=== PATIENT | male | born 1965 | race Caucasian/White ===

== ENCOUNTER 2016-07-29 09:46 | Inpatient (IN) | payer BC ==
[2016-07-22 15:43] VITALS: BMI 28.1
[~2016-07-29 09:46] MED LIST: CLINDAMYCIN 900 MG in DEXTROSE 5% IN WATER 50 ML IVPB ONE; DEXAMETHASONE SOD PHOSPHATE 10 MG/ML 1 ML VIAL IV ONE; HYDROmorphone 1 MG/ML 1 ML SYRINGE IVP PRN; LIDOCAINE 1% 20 ML VIAL (10MG/ML) FOR IV START INTRADERMA PRN; ONDANSETRON 4 MG/2 ML VIAL IVP ONE; SCOPOLAMINE 1.5MG/72HR PATCH TRANSDERM ONE
[2016-07-29] MEDS: LACTATED RINGERS 1,000 ML IV SCH (13:22)
[2016-07-29] MEDS ORDERED: LIDOCAINE 1% 20 ML VIAL (10MG/ML) FOR IV START INTRADERMA ONE (13:23)
[2016-07-29 13:25] LABS: Glucose,Whole Blood 140 mg/dL (75-99)
[2016-07-29] MEDS ORDERED: MIDAZOLAM 2 MG/2 ML VIAL IVP ONE (13:55)
[2016-07-29] MEDS ORDERED: SUCCINYLCHOLINE CHLORIDE 100 MG/5 ML SYR IV ONE (15:13)
[2016-07-29] MEDS ORDERED: MIDAZOLAM 2 MG/2 ML VIAL ONE (15:13)
[2016-07-29] MEDS ORDERED: LIDOCAINE 1% INJ 10MG/ML (20 ML MDV) ONE (15:13)
[2016-07-29] MEDS ORDERED: PROPOFOL 10 MG/ML 20 ML VIAL IV ONE (15:13)
[2016-07-29] MEDS ORDERED: ROCURONIUM BROMIDE 10 MG/ML 10 ML VIAL IV ONE (15:13)
[2016-07-29] MEDS ORDERED: NEOSTIGMINE 1 MG/ML 10 ML VIAL ONE (15:13)
[2016-07-29] MEDS ORDERED: GLYCOPYRROLATE 0.2 MG/ML 2 ML VIAL ONE (15:13)
[2016-07-29] MEDS ORDERED: fentaNYL (PF) 50 MCG/ML 2 ML AMP ONE (15:13)
[2016-07-29] MEDS ORDERED: SODIUM CHLORIDE 0.9% 100 ML with CLINDAMYCIN 900 MG IV ONE ×2 (15:15)
[2016-07-29] MEDS ORDERED: ceFAZolin 3,000 MG in SODIUM CHLORIDE 0.9% IRRIGATIO 3,000 ML IRRIGATION ONE (15:45)
--- NOTE | 2016-07-29 16:06 | P.OP ---
Date of Procedure: 07/29/16 Preoperative Diagnosis: Irritating hardware right hip Postoperative Diagnosis: Irritating hardware right hip Procedure(s) Performed: Removal of hardware right hip Anesthesia: spinal Surgeon: Elton Jean Stone Rigger #1: Jeanna Castellon Stone Rigger #2: Linnea Lazcano Estimated Blood Loss (ml): 50 Pathology: none sent Condition: stable Disposition: PACU Indications for Procedure: This is a 50-year-old gentleman who was admitted multiple hip surgeries on his right hip. He has a right total hip arthroplasty with a trochanteric claw and broken cables. He feels that the claw and the broken cable was given excessive pain on the lateral side of his hip, and wishes to have them removed. We discussed the surgical and nonsurgical treatment options at length. I also discussed the potential complications including, but not limited to infection, bleeding, nerve damage, and also the potential for his pain not being relieved. He is aware of this, and informed consent was obtained. Operative Findings: The operative findings are consistent with a retained trochanteric claw and a broken cable. Description of Procedure: Patient was seen and evaluated in the preoperative area, consent was reviewed, and the surgical site was marked with a skin marker. Patient was then brought to the operating room and given prophylactic antibiotics intravenously. A spinal anesthetic was administered by the anesthesia department. The patient was then placed on the operative table and placed in the lateral decubitus position with the bony prominences well-padded. The hip area was then prepped and draped in usual sterile fashion. A universal timeout was then performed, which confirmed the patient's name, surgical site, ALLERGIES, and procedure being performed. Next the incision site was located in the lateral aspect of the hip, centered at the tip of the greater trochanter.. The skin and subcutaneous tissues were sharply incised. Incision was carefully dissected down to the fascia. This fascia was then incised in line with the incision. Next, a Charnley retractor was then placed in the abductors were identified. The trochanteric claw was then readily identified. It was then removed after freeing it from the bone. It was found to grossly loose. The broken cable was then removed as well. There appeared to be no other evidence of retained hardware. The hip was then copiously irrigated with antibiotic solution with pulsatile lavage. The fascia was closed with #2 strata fix suture. The subcutaneous tissue was closed with 3-0 Vicryl. The subcuticular tissue was closed with 30 strata fix suture. The skin was then closed with Dermabond tape. The patient was then transferred to the recovery room in stable condition. The Asst. Jeanna Castellon was required due to the complexity of surgery, and the need for skilled surgical specialist for positioning, draping, exposure, retraction, and closure of the wound.and closure of the wound.
[2016-07-29] MEDS ORDERED: LACTATED RINGERS 1,000 ML IV ONE (16:10)
[2016-07-29] MEDS ORDERED: HYDROmorphone 1 MG/ML 1 ML SYRINGE IVP PRN ×3 (16:11)
[2016-07-29] MEDS ORDERED: SENNOSIDES-DOCUSATE SODIUM 1 EACH TAB PO PRN (16:11)
[2016-07-29] MEDS ORDERED: ONDANSETRON 4 MG/2 ML VIAL IVP PRN (16:11)
[2016-07-29] MEDS ORDERED: HYDROcodone/APAP 5-325MG 1 EACH TAB PO PRN ×2 (16:11)
[2016-07-29 16:33] VITALS: RESP 16
[2016-07-29 16:44] LABS: Glucose,Whole Blood 176 mg/dL (75-99)
--- NOTE | 2016-07-29 16:45 | XR ---
EXAMINATION TYPE: XR Hip Limited RT DATE OF EXAM: 07/29/2016 4:40 PM COMPARISON: NONE HISTORY: Postop right hip TECHNIQUE: Single AP right hip FINDINGS: Right hip prosthesis is present. Acetabular component is present. Cerclage wires are presen t. Acute fractures are not identified. IMPRESSION: 1. No acute fracture post right hip placement.
[2016-07-29] MEDS: SODIUM CHLORIDE 0.9% 1,000 ML IV SCH (17:47)
[2016-07-29] MEDS: INSULIN LISPRO (humaLOG) 300 UNIT/3 ML VIAL SQ SCH ×2 (17:47→22:28)
[2016-07-29 18:18] LABS: Basophils # (A) 0.1 k/uL (0-0.2); Basophils % (A) 1 %; CH 35.6; Eosinophils % (A) 0 %; HCT 55.6 % (39.0-53.0); HDW 2.32; HGB 18.8 gm/dL (13.0-17.5); Luc # (Auto) 0.06; Luc % (Auto) 1; Lymphocytes # (A) 0.6 k/uL (1.0-4.8); Lymphocytes % (A) 9 %; MCH 34.5 pg (25.0-35.0); MCHC 33.8 g/dL (31.0-37.0); MCV 102.2 fL (80.0-100.0); Macrocytosis Slight; Mean Platelet Volume 6.2; Monocytes # (A) 0.2 k/uL (0-1.0); Monocytes % (A) 3 %; Neutrophils # (A) 5.9 k/uL (1.3-7.7); Neutrophils % (A) 86 %; RBC 5.44 m/uL (4.30-5.90); WBC 6.9 k/uL (3.8-10.6)
[2016-07-29 21:40] LABS: Glucose,Whole Blood 243 mg/dL (75-99)
[2016-07-29] MEDS: metFORMIN 500 MG TAB PO SCH (22:28)
[2016-07-30] MEDS: CLINDAMYCIN 900 MG in DEXTROSE 5% IN WATER 50 ML IVPB SCH ×4 (00:23→08:00)
[2016-07-30] MEDS: SODIUM CHLORIDE 0.9% 1,000 ML IV SCH ×2 (00:25→09:47)
[2016-07-30] MEDS: LACTATED RINGERS 1,000 ML IV SCH (05:18)
[2016-07-30] MEDS ORDERED: PANTOPRAZOLE 40 MG TABLET PO SCH (07:30)
[2016-07-30 07:35] LABS: Glucose,Whole Blood 117 mg/dL (75-99)
[2016-07-30] MEDS: INSULIN LISPRO (humaLOG) 300 UNIT/3 ML VIAL SQ SCH (07:56)
[2016-07-30] MEDS: metFORMIN 500 MG TAB PO SCH (08:00)
[2016-07-30 08:06] VITALS: BP 135/78; PULSE 72; TEMP 97.9
[2016-07-30] MEDS ORDERED: MELOXICAM 7.5 MG TAB PO SCH (09:00)
[2016-07-30] MEDS ORDERED: LISINOPRIL 20 MG TAB PO SCH (09:00)
[2016-07-30] MEDS ORDERED: HYDROCHLOROTHIAZIDE 25 MG TAB PO SCH (09:00)
--- NOTE | 2016-07-30 09:58 | P.DS ---
Providers Date of admission: 07/29/16 12:24 Expected date of discharge: 07/30/16 Attending physician: Elton Jean Consults: 07/29/16 16:11 Consult Physician Stat Consulting Provider: Mark Mcnamara Consult Reason/Comments: medical management Do you want consulting provider notified?: Yes 07/29/16 17:53 Consult Physician Routine Consulting Provider: Terrance Healy Consult Reason/Comments: medical managment Do you want consulting provider notified?: Yes Primary care physician: Mark Mcnamara - Discharge Diagnosis(es) (1) Discomfort of right hip Current Visit: Yes Status: Acute Hospital Course: This is a 50-year-old gentleman who is last seen in our office with complaints of right hip pain. He's had multiple surgeries on the right hip with a trochanteric claw and broken cables. After discussion consideration the patient elected to proceed with removal of hardware. He was admitted to [facility] on 07/29/2016 and underwent the procedure. The procedure was performed without complications or sequelae. The patient is seen and evaluated at bedside with Dr. Elton Jean on postoperative day #1. He states that his pain is under fair control. He has no new complaints at this time. Dressing is clean dry and intact. Incision is fine with no erythema or active drainage. Thigh and calf is soft and nontender. He has sustained dorsiflexion plantar flexion. Sensation and circulatory status is intact. Patient is orthopedically stable for discharge to home today. Pertinent Studies: Laboratory Tests 07/29/16 17:46 WBC 6.9 RBC 5.44 Hgb 18.8 H Hct 55.6 H MCV 102.2 H Patient Condition at Discharge: Good Plan - Discharge Summary New Discharge Prescriptions: Aspirin 325 mg PO DAILY #14 tab Hydrocodone/Acetaminophen [[place] 5-325] 1 - 2 each PO Q6HR PRN #60 tab PRN Reason: Pain Sennosides-Docusate Sodium [Senokot-S] 2 tab PO DAILY #60 tablet Discharge Medication List Enalapril [Vasotec] 10 mg PO DAILY 07/22/16 [History] Hydrochlorothiazide [Hydrodiuril] 25 mg PO DAILY 07/22/16 [History] Meloxicam [Mobic] 15 mg PO DAILY 07/22/16 [History] [place]-3 Fatty Acids/Fish Oil [Fish Oil 1,000 mg Softgel] 2 cap PO BID 07/22/16 [ History] Omeprazole [PriLOSEC] 20 mg PO AC-BRKFST 07/22/16 [History] metFORMIN HCL 1,000 mg PO BID 07/22/16 [History] Acetaminophen Tab [Tylenol Tab] 650 mg PO Q4H PRN 07/23/16 [History] Multivitamin [Men's Multi-Vitamin] 1 tab PO DAILY 07/23/16 [History] Aspirin 325 mg PO DAILY #14 tab 07/30/16 [Rx] Hydrocodone/Acetaminophen [[place] 5-325] 1 - 2 each PO Q6HR PRN #60 tab 07/30/16 [Rx] Sennosides-Docusate Sodium [Senokot-S] 2 tab PO DAILY #60 tablet 07/30/16 [Rx] Follow up Appointment(s)/Referral(s): Elton Jean DO [Doctor of Osteopathic Medicine] - 2 Weeks Activity/Diet/Wound Care/Special Instructions: Weightbearing as tolerated Aspirin 325mg one po daily for 2 weeks Okay to shower after 2 days without drainage Leave skin gule intact Call OA [phone] with any questions or concerns Discharge Disposition: HOME SELF-CARE
[2016-07-30 11:57] LABS: Glucose,Whole Blood 120 mg/dL (75-99)
[2016-07-30] MEDS ORDERED: MULTIVITAMINS, THERA 1 EACH TAB PO SCH (12:00)
[2016-07-30] MEDS ORDERED: NON-FORMULARY DRUG (Omega-3 Fatty Acids/Fish Oil [Fish Oil 1,000 Mg Softgel] 2 CAP) PO SCH (21:44)
--- NOTE | 2016-07-31 08:57 | CONS ---
DATE OF CONSULTATION: 07/30/2016 REASON FOR CONSULTATION: Medical management requested by Dr. Jean. CONSULTATION: This is a 50-year-old patient I saw her yesterday afternoon on 07/30/2016. Patient's chronic stable medical conditions include diabetes, GERD, hyperlipidemia, osteoarthritis. Patient has a fredrick in the right hip, advised on the same and wire had broken off, has been irritating the same in the right hip. That wire was actually removed. Postprocedure, sitting up, no chest pain, no nausea or vomiting. Did tolerate his meal. REVIEW OF SYSTEMS: CONSTITUTIONAL: None. HEENT: None. RESPIRATORY: None. CARDIOVASCULAR: None. GASTROINTESTINAL: None. GENITOURINARY: None. MUSCULOSKELETAL: Pain in the joints. DERMATOLOGICAL: None. HEMATOLOGIC: None. LYMPHATICS: None. PSYCHIATRY: None. NEUROLOGICAL: None. PAST MEDICAL HISTORY: Diabetes mellitus type 2, GERD, hypertension, osteoarthritis. PAST SURGICAL HISTORY: Right hip surgery, revision right hip, left total hip, left ankle, left elbow surgery. SOCIAL HISTORY: Patient smokes 1/2 pack a week, done it for over 30 years. . Family history of colon cancer. Home medications include: 1. Metformin 1000 mg b.i.d. 2. Hydrochlorothiazide 25 mg a day. 3. Mobic. 4. Vasotec 10 mg p.o. daily. 5. Prilosec 20 mg a day. Allergies to AMPICILLIN. On examination, temperature 97.9, pulse 72, respiration 16, blood pressure 130/78, pulse ox 97% on room air. GENERAL APPEARANCE: Average build, sitting up in a chair, comfortable. EYES: Pupils equal. Conjunctivae normal. HEENT: Oral cavity normal. NECK: JVD not raised. Mass not palpable. Respiratory effort normal. LUNGS: Fair air entry. CARDIOVASCULAR: First and second sounds normal. No edema. ABDOMEN: Soft, nontender. Liver and spleen not palpable. LYMPHATIC: No lymph node palpable in neck or axillae. PSYCHIATRY: Mood and affect normal. Dressing over the right hip. INVESTIGATIONS: White count 6.9, hemoglobin 8.8. Accu-Cheks are noted. ASSESSMENT: 1. Surgery of the right hip, wire was removed that was bothering the patient. 2. Diabetes mellitus type 2, on oral hypoglycemic. 3. Gastroesophageal reflux disease. 4. Essential hypertension. PLAN: Home medications are resumed. Care was discussed with the patient. Patient should follow up with his family doctor upon discharge. Thank you, Dr. Jean.
== END 2016-07-30 12:27 | disposition home or self-care (01) | DRG 482 ==
LOC: 2ORMAIN 12:24 → 3SUR 16:09
PROVIDERS: ADMIT Orthopaedic Surgery; ATTEND Orthopaedic Surgery
PROC: 0SP904Z Removal of Internal Fixation Device from Right Hip Joint, Open Approach (ICD-10-PCS; principal; 2016-07-29 14:45)
DX: T84.84XA Pain due to internal orthopedic prosthetic devices, implants and grafts, initial encounter (principal); T84.114A Breakdown (mechanical) of internal fixation device of right femur, initial encounter; I10 Essential (primary) hypertension; E11.9 Type 2 diabetes mellitus without complications; Y79.2 Prosthetic and other implants, materials and accessory orthopedic devices associated with adverse incidents; E78.5 Hyperlipidemia, unspecified; F17.210 Nicotine dependence, cigarettes, uncomplicated; K21.9 Gastro-esophageal reflux disease without esophagitis; M19.90 Unspecified osteoarthritis, unspecified site; Z79.84 Long term (current) use of oral hypoglycemic drugs; Z79.899 Other long term (current) drug therapy; Z80.0 Family history of malignant neoplasm of digestive organs; Z88.0 Allergy status to penicillin
CPT/HCPCS: 73501; 85025

== ENCOUNTER → 2016-09-20 | Outpatient (CLI) | payer BC ==
[2016-09-20 12:27] LABS: CH 36.6; CHCM 35.7; HCT 57.5 % (39.0-53.0); HGB 19.3 gm/dL (13.0-17.5); MCH 34.5 pg (25.0-35.0); MCHC 33.5 g/dL (31.0-37.0); MCV 102.9 fL (80.0-100.0); Macrocytosis Slight; Mean Platelet Volume 6.2; RBC 5.58 m/uL (4.30-5.90); RDW 13.4 % (11.5-15.5); WBC 6.4 k/uL (3.8-10.6)
[2016-09-20 12:37] LABS: INR 1.1 (<1.1); Partial Thromboplastin Time 23.7 sec (22.0-30.0); Prothrombin Time 11.3 sec (9.0-12.0)
[2016-09-20 12:38] LABS: ALT 59 U/L (21-72); AST 33 U/L (17-59); Alkaline Phosphatase 80 U/L (38-126); Anion Gap 10 mmol/L; Blood Urea Nitrogen 7 mg/dL (9-20); Calcium 9.3 mg/dL (8.4-10.2); Carbon Dioxide 24 mmol/L (22-30); Chloride 95 mmol/L (98-107); Glucose 112 mg/dL (74-99); Non-African American GFR(MDRD) >60 (>60 ml/min/1.73 sqM); Potassium 4.3 mmol/L (3.5-5.1); Sodium 129 mmol/L (137-145); Total Bilirubin 0.7 mg/dL (0.2-1.3); Total Protein 7.2 g/dL (6.3-8.2)
[2016-09-20 12:40] LABS: Appearance,Urine Clear (Clear); Bilirubin,Urine Negative (Negative); Glucose,Urine (UA) Negative (Negative); Ketones,Urine Trace (Negative); Leukocyte Esterase,Urine Negative (Negative); Mucus,Urine Rare /hpf; Nitrite,Urine Negative (Negative); PH, Urine 6.5 (5.0-8.0); Particle Count 370; Protein,Urine Negative (Negative); RBC,Urine 1 /hpf (0-5); Specific Gravity,Urine 1.007 (1.001-1.035); UA Billing (MACRO vs. MICRO) MICRO; Urobilinogen,Urine <2.0 mg/dL (<2.0); WBC,Urine <1 /hpf (0-5)
== END ==
LOC: LABPAT 11:33
PROVIDERS: ATTEND Orthopaedic Surgery Hand Surgery
DX: Z01.810 Encounter for preprocedural cardiovascular examination (principal); Z01.812 Encounter for preprocedural laboratory examination; Z51.81 Encounter for therapeutic drug level monitoring; Z79.01 Long term (current) use of anticoagulants
CPT/HCPCS: 36415; 80053; 81001; 85027; 85610; 85730; 87070

== ENCOUNTER → 2016-09-23 | Outpatient (CLI) | payer BC | END | disposition home or self-care (01) | LOC: LABPAT 14:23 | PROVIDERS: ATTEND Orthopaedic Surgery | DX: Z01.812 Encounter for preprocedural laboratory examination (principal) | CPT/HCPCS: 85652; 86140 ==

== ENCOUNTER 2016-09-24 07:00 | Inpatient (IN) | payer BC ==
[~2016-09-24 07:00] MED LIST changes: +ACETAMINOPHEN TAB 500 MG TAB PO ONE; -CLINDAMYCIN 900 MG in DEXTROSE 5% IN WATER 50 ML IVPB ONE; +FAMOTIDINE 20 MG/2 ML VIAL IV PRN; -HYDROmorphone 1 MG/ML 1 ML SYRINGE IVP PRN; +MIDAZOLAM 2 MG/2 ML VIAL IV PRN; -ONDANSETRON 4 MG/2 ML VIAL IVP ONE; +ROPIVACAINE 246.25 MG, EPINEPHrine 0.5 MG, KETOROLAC 30 MG, cloNIDine HCL/PF 80 MCG, WA... MISCELLANE ONE; +TRANEXAMIC ACID 1,000 MG in SODIUM CHLORIDE 0.9% 100 ML IVPB ONE; +ceFAZolin 2 GM in SODIUM CHLORIDE 0.9% 100 ML IVPB ONE
[2016-09-24] MEDS: LACTATED RINGERS 1,000 ML IV SCH ×2 (10:43→23:26)
[2016-09-24] MEDS ORDERED: LIDOCAINE 1% 20 ML VIAL (10MG/ML) FOR IV START INTRADERMA ONE (10:44)
[2016-09-24] MEDS: MELOXICAM 7.5 MG TAB PO ONE ×2 (10:47→17:04)
[2016-09-24] MEDS ORDERED: ONDANSETRON 4 MG/2 ML VIAL IVP ONE (10:55)
[2016-09-24 10:57] LABS: Glucose,Whole Blood 145 mg/dL (75-99)
[2016-09-24] MEDS ORDERED: ePHEDrine 50 MG/ML 1 ML AMP ONE (12:48)
[2016-09-24] MEDS ORDERED: TRANEXAMIC ACID 1,000 MG/10 ML VIAL ONE (12:48)
[2016-09-24] MEDS ORDERED: PHENYLEPHRINE-0.9% NACL SYG 1 MG/10 ML SYRINGE ONE (12:48)
[2016-09-24] MEDS ORDERED: HEPARIN SODIUM,PORCINE 10,000 UNIT/ML 1 ML VIAL ONE (12:48)
[2016-09-24] MEDS ORDERED: SODIUM CHLORIDE 0.9% 100 ML BAG ONE (12:48)
[2016-09-24] MEDS ORDERED: SODIUM CHLORIDE 0.9% IRRIG 1,000 ML BTL IRRIGATION ONE (12:48)
[2016-09-24] MEDS ORDERED: PROPOFOL 10 MG/ML 20 ML VIAL IV ONE (12:48)
[2016-09-24] MEDS ORDERED: MIDAZOLAM 2 MG/2 ML VIAL ONE (12:48)
[2016-09-24] MEDS ORDERED: fentaNYL (PF) 50 MCG/ML 50 ML VIAL ONE (12:48)
[2016-09-24] MEDS ORDERED: MIDAZOLAM 2 MG/2 ML VIAL IVP ONE (12:49)
[2016-09-24] MEDS ORDERED: LACTATED RINGERS 1,000 ML IV ONE ×2 (13:34→15:01)
[2016-09-24] MEDS ORDERED: ceFAZolin 3,000 MG in SODIUM CHLORIDE 0.9% IRRIGATIO 3,000 ML IRRIGATION ONE (13:36)
--- NOTE | 2016-09-24 15:23 | P.OP ---
Date of Procedure: 09/24/16 Preoperative Diagnosis: Loose acetabular component right total hip arthroplasty Postoperative Diagnosis: Loose acetabular component right total hip arthroplasty Procedure(s) Performed: Revision right total hip arthroplasty Implants: [employer] R3 multi hole hemispherical shell, 60 mm [employer] R3 XLPE 20 acetabular liner, 36 mm x 60 mm [employer] 6.5 mm cancellus screws 5 Oliverio L fit anatomic C taper femoral head, 36 mm by +10 Components were press-fit The articulation is metal on polyethylene. Anesthesia: spinal Surgeon: Elton Jean [employer] Farm Manager #1: Linnea Lazcano Estimated Blood Loss (ml): 2,800 (1506 mL returned with Cell Saver) Pathology: other (Cultures 2, frozen section of synovial tissue from right hip) Condition: stable Disposition: PACU Indications for Procedure: This is a 50-year-old gentleman that has had multiple prior right hip surgeries. He began having more pain recently, and an x-ray demonstrated a loose acetabular component was right total hip. After discussing the surgical and nonsurgical treatment options with him at length, he wishes to proceed with a revision right total hip arthroplasty. He is aware of the potential complications including, but not limited to, infection, bleeding, nerve injury, dislocation, leg length discrepancy, and the need for further surgery. He is aware of all these and informed consent was obtained. Operative Findings: The operative findings are consistent with a loose acetabular component of the right total hip arthroplasty. The femoral component was well fixed. There was no evidence of an active infection. Description of Procedure: Patient was seen and evaluated in the preoperative area, consent was reviewed, and the surgical site was marked with a skin marker. Patient was then brought to the operating room and given prophylactic antibiotics intravenously. 1 g of Tranexamic acid was also given. A spinal anesthetic was administered by the anesthesia department. The patient was then placed on the operative table and placed in the lateral decubitus position with the bony prominences well-padded. The hip area was then prepped and draped in usual sterile fashion. A universal timeout was then performed, which confirmed the patient's name, surgical site, ALLERGIES, and procedure being performed. Next the incision site was located in the lateral aspect of the hip, centered at the tip of the greater trochanter. His prior incision was utilized. The skin and subcutaneous tissues were sharply incised, with the prior incision being removed.. Incision was carefully dissected down to the fascia. This fascia was then incised in line with the incision. Next, a Charnley retractor was then placed in the abductors were identified. The anterior one third of the abductors was released off the trochanter and one large sleeve. The anterior hip capsule was then exposed. The capsule was then opened. The proximal femur was then visualized. The hip was then gently dislocated. The femoral head was removed from the prosthesis. The femoral component was inspected and found to be well fixed.. Attention was then turned to the acetabulum. The acetabulum was exposed and any remaining labrum was excised. The prior acetabular component was easily removed. The prior screws and K wires removed as well. Sequential reaming of the acetabulum was performed to a bed of bleeding cancellus bone. When the appropriate size was reached, a trial was then placed. The trial was then removed. 30 mL of crushed cancellus bone was then placed in the acetabulum and reverse reamed. Then the final implant was impacted at 20 of anteversion and 40 of abduction, and fully seated in the acetabulum. 5 screws were then placed in the acetabulum. Next, the liner was then impacted, with a 20 elevated liner located in the anterior superior quadrant. Component locking was confirmed. A trial was then placed with appropriate head and neck, and the hip was gently reduced. The leg lengths were checked and found to be equal. Hip was then taken through full range of motion, was stable throughout. Next, the hip was gently dislocated, and the trials were removed. Final implants were then impacted and the hip was again reduced. The leg lengths were again examined and found to be equal. The hip was also taken through range of motion, and found to be stable. The hip was then copiously irrigated with antibiotic solution with pulsatile lavage. The hip was then irrigated with Irrisept solution. The soft tissues were then injected with ropivacaine solution. A second dose of 1 g of Tranexamic acid was given. The abductors were then repaired with #5 Ethibond suture with drill holes to the bone. The fascia was closed with #2 strata fix suture. The subcutaneous tissue was closed with 3-0 Vicryl. The subcuticular tissue was closed with 30 strata fix suture. The skin was then closed with Dermabond tape. The patient was then transferred to the recovery room in stable condition. The pediatric physical therapy assistant PAVEL Johnson was required due to the complexity of surgery, and the need for skilled rn medical surgical for positioning, draping, exposure, retraction, and closure of the wound.and closure of the wound.
[2016-09-24] MEDS ORDERED: HYDROmorphone 1 MG/ML 1 ML SYRINGE IVP PRN (15:39)
[2016-09-24] MEDS ORDERED: NALOXONE 0.4 MG/ML 1 ML VIAL IV PRN (15:39)
[2016-09-24] MEDS ORDERED: MAGNESIUM HYDROXIDE 2,400 MG/10 ML CUP PO PRN (15:39)
[2016-09-24] MEDS ORDERED: DIAZEPAM 5 MG TAB PO PRN ×2 (15:39)
[2016-09-24] MEDS ORDERED: Acetaminophen-Codeine 300-30mg TAB PO PRN (15:39)
--- NOTE | 2016-09-24 15:56 | XR ---
EXAMINATION TYPE: XR Hip Limited RT DATE OF EXAM: 09/24/2016 COMPARISON: 07/29/2016 HISTORY: Postop TECHNIQUE: Single AP view pelvis is obtained. FINDINGS: There is a right hip prosthesis. Cerclage wires are present. Radiopaque foreign bodies are at the level of the proximal diaphysis. Acetabular component is present. IMPRESSION: 1. No acute osseous abnormality.
[2016-09-24 16:27] LABS: Glucose,Whole Blood 184 mg/dL (75-99)
[2016-09-24] MEDS: HYDROmorphone 1 MG/ML 1 ML SYRINGE IVP PRN ×3 (16:32→20:58)
[2016-09-24 16:49] LABS: Basophils % (A) 0 %; CH 36.2; CHCM 34.1; Eosinophils % (A) 0 %; HCT 54.3 % (39.0-53.0); HDW 2.31; HGB 17.8 gm/dL (13.0-17.5); Luc % (Auto) 1; Lymphocytes # (A) 0.7 k/uL (1.0-4.8); Lymphocytes % (A) 6 %; MCHC 32.8 g/dL (31.0-37.0); MCV 106.6 fL (80.0-100.0); Macrocytosis Moderate; Mean Platelet Volume 6.4; Monocytes # (A) 0.5 k/uL (0-1.0); Monocytes % (A) 5 %; Neutrophils # (A) 9.8 k/uL (1.3-7.7); Neutrophils % (A) 88 %; RBC 5.09 m/uL (4.30-5.90); RDW 13.5 % (11.5-15.5); WBC 11.1 k/uL (3.8-10.6); WBC (Perox) 10.65
[2016-09-24] MEDS: SODIUM CHLORIDE 0.9% 1,000 ML IV SCH (17:29)
[2016-09-24] MEDS: ceFAZolin 2 GM in SODIUM CHLORIDE 0.9% 100 ML IVPB SCH ×2 (17:31→23:23)
[2016-09-24] MEDS: INSULIN LISPRO (humaLOG) 300 UNIT/3 ML VIAL SQ SCH ×2 (17:55→21:14)
[2016-09-24] MEDS: NICOTINE 7MG/24HR PATCH TRANSDERM SCH (19:52)
[2016-09-24] MEDS: metFORMIN 500 MG TAB PO SCH (19:53)
[2016-09-24] MEDS: LORATADINE 10 MG TAB PO SCH (19:53)
[2016-09-24] MEDS: ASPIRIN 325 MG TAB PO SCH (19:53)
[2016-09-24] MEDS: SENNOSIDES-DOCUSATE SODIUM 1 EACH TAB PO SCH (19:54)
[2016-09-24 21:15] LABS: Glucose,Whole Blood 170 mg/dL (75-99)
--- NOTE | 2016-09-24 23:01 | CONS ---
DATE OF CONSULTATION: 09/24/2016. REASON FOR CONSULTATION: Medical management requested by Dr. Jean. CONSULTATION: This is a pleasant 50 -year-old patient who had a loose acetabulum and underwent right revision total hip arthroplasty of the right hip. Postprocedure pain is controlled. No nausea or vomiting. Actually was eating his dinner. No chest pain. The patient's chronic stable medical conditions include diabetes, GERD, hypertension, has rheumatoid arthritis of the joints. REVIEW OF SYSTEMS: CONSTITUTIONAL: None. HEENT: None. RESPIRATORY: None. CARDIOVASCULAR: None. GASTROINTESTINAL: Heartburn. GENITOURINARY: None. MUSCULOSKELETAL: As above. Dermatological: None. HEMATOLOGICAL: None. LYMPHATICS: None. PSYCHIATRY: None. NEUROLOGICAL: None. Past medical history of diabetes, GERD, hypertension, osteoarthritis. PAST SURGICAL HISTORY: Right total hip surgery, right revision right hip, left total hip, left ankle and left elbow. SOCIAL HISTORY: Patient is a smoker, variable amount for the last 28 years. Drinks alcohol socially, . Works at [employer]. Family history of colon cancer. HOME MEDICATIONS: 1. Metformin 1000 mg b.i.d. 2. Hydrochlorothiazide 25 mg p.o. daily. 3. Flonase one spray nasal. 4. ( ) 10 mg p.o. q.h.s. 5. Ibuprofen 400 mg q.6 p.r.n. 6. Vasotec 10 mg p.o. daily. 7. Prilosec 20 mg at breakfast. 8. Fish oil two capsules p.o. b.i.d. 9. Men's multivitamin 1 tablet p.o. daily. 10. Mobic 50 mg p.o. daily. ALLERGIES TO AMPICILLIN. On examination, afebrile, pulse 78, respirations 16, blood pressure 130/79, pulse ox 97% on 3 L. GENERAL APPEARANCE: Average build. Sitting up, comfortable. EYES: Pupils equal. Conjunctivae normal. HEENT: Oral cavity normal. NECK: JVD is not raised. Mass not palpable. RESPIRATORY: Effort normal. LUNGS: Slightly decreased breath sounds. CARDIOVASCULAR: First and second sounds normal. No edema. ABDOMEN: Soft palpable. LYMPHATIC: No lymph nodes palpable in neck or axillae. PSYCHIATRY: Alert and oriented x3. Mood and affect is normal. NEUROLOGICAL: Pupils equal. Cranial nerves grossly intact. Power is grossly intact. INVESTIGATIONS: White count 11.1, hemoglobin 17.8. ASSESSMENT: 1. Revision right total hip arthroplasty. 2. Type 2 diabetes mellitus, on oral hypoglycemics. 3. Gastroesophageal reflux disease. 4. Essential hypertension. 5. Primary osteoarthritis in multiple joints. 6. Chronic nicotine dependence. Patient is a smoker. PLAN: Home medications will be resumed. DVT prophylaxis per Dr. Jean. Patient will be given a nicotine patch. Questions were answered. Thank you Dr. Jean.
[2016-09-25] MEDS: Acetaminophen-Codeine 300-30mg TAB PO PRN ×4 (00:35→17:20)
[2016-09-25] MEDS: hydrOXYzine PAMOATE 25 MG CAP PO PRN ×2 (00:35→07:06)
[2016-09-25] MEDS: HYDROmorphone 1 MG/ML 1 ML SYRINGE IVP PRN ×4 (02:09→19:51)
[2016-09-25] MEDS: SODIUM CHLORIDE 0.9% 1,000 ML IV SCH ×2 (05:56→23:30)
[2016-09-25 07:33] LABS: Glucose,Whole Blood 126 mg/dL (75-99)
[2016-09-25] MEDS: INSULIN LISPRO (humaLOG) 300 UNIT/3 ML VIAL SQ SCH ×4 (07:50→20:28)
[2016-09-25] MEDS: PANTOPRAZOLE 40 MG TABLET PO SCH (07:50)
[2016-09-25] MEDS: metFORMIN 500 MG TAB PO SCH ×2 (07:50→17:58)
[2016-09-25 07:51] LABS: Basophils % (A) 0 %; CH 36.2; CHCM 35.3; Eosinophils # (A) 0.1 k/uL (0-0.7); Eosinophils % (A) 1 %; HCT 40.5 % (39.0-53.0); HDW 2.42; Luc # (Auto) 0.16; Luc % (Auto) 2; Lymphocytes # (A) 2.1 k/uL (1.0-4.8); Lymphocytes % (A) 25 %; MCH 35.9 pg (25.0-35.0); MCHC 34.8 g/dL (31.0-37.0); MCV 103.1 fL (80.0-100.0); Macrocytosis Slight; Mean Platelet Volume 7.1; Monocytes # (A) 0.5 k/uL (0-1.0); Monocytes % (A) 6 %; Neutrophils # (A) 5.5 k/uL (1.3-7.7); Neutrophils % (A) 66 %; RBC 3.93 m/uL (4.30-5.90); WBC 8.4 k/uL (3.8-10.6); WBC (Perox) 8.69
[2016-09-25] MEDS: ASPIRIN 325 MG TAB PO SCH ×2 (07:51→20:28)
[2016-09-25] MEDS: FLUTICASONE 50MCG/SPRAY NASAL 16GM NASAL SCH (07:51)
[2016-09-25] MEDS: MELOXICAM 7.5 MG TAB PO SCH (07:52)
[2016-09-25] MEDS: LISINOPRIL 20 MG TAB PO SCH (07:52)
[2016-09-25 07:53] LABS: HGB 14.1 gm/dL (13.0-17.5)
[2016-09-25] MEDS: NICOTINE 7MG/24HR PATCH TRANSDERM SCH (07:53)
[2016-09-25] MEDS: ceFAZolin 2 GM in SODIUM CHLORIDE 0.9% 100 ML IVPB SCH ×3 (07:57→23:30)
[2016-09-25 08:12] LABS: Hemoglobin A1C 5.5 % (4.2-6.1)
[2016-09-25 11:38] LABS: Glucose,Whole Blood 126 mg/dL (75-99)
--- NOTE | 2016-09-25 13:34 | P.PN ---
Subjective Principal diagnosis: Status post revision right total hip arthroplasty This is a well-appearing 50 year old male who is status post revision right total hip arthroplasty. This is post operative day #1. Patient was seen and evaluated at bedside with Dr. Elton Jean. Patient states his pain is under control. Patient has no new complaints today. Objective - Vital Signs Vital signs: Vital Signs Temp 97.9 F 09/25/16 02:33 Pulse 86 09/25/16 02:33 Resp 16 09/25/16 08:00 BP 108/74 09/25/16 02:33 Pulse Ox 96 09/25/16 07:37 Intake & Output 09/24/16 09/25/16 09/25/16 18:59 06:59 18:59 Intake Total 5880 455 360 Output Total 2875 350 600 Balance 3005 105 -240 Intake: IV 5400 455 Sodium Chloride 0.9% 1, 455 000 ml @ 65 mls/hr IV . [id number] REX Rx#:[id number] Oral 480 360 Output: Urine 75 350 600 Uretheral (Ha) 350 600 Estimated Blood Loss 2800 Other: Voiding Method Indwelling Catheter Indwelling Catheter - Exam Patient is in no acute distress and is alert and oriented x3. Vital signs are stable. Patient's incision is clean and intact. There is some sanguineous drainage noted on the dressing.. Calf is soft and nontender. Patient has full foot and ankle motion. Neurovascular status is intact. - Labs CBC & Chem 7: 09/25/16 06:39 Labs: Abnormal Lab Results - Last 24 Hours (Table) 09/24/16 09/24/16 09/24/16 Range/Units 16:21 16:23 21:12 WBC 11.1 H (3.8-10.6) k/uL RBC (4.30-5.90) m/uL Hgb 17.8 H (13.0-17.5) gm/dL Hct 54.3 H (39.0-53.0) % MCV 106.6 H (80.0-100.0) fL MCH (25.0-35.0) pg Plt Count (150-450) k/uL Neutrophils # 9.8 H (1.3-7.7) k/uL Lymphocytes # 0.7 L (1.0-4.8) k/uL POC Glucose (mg/dL) 184 H 170 H (75-99) mg/dL 09/25/16 09/25/16 09/25/16 Range/Units 06:39 07:30 11:23 WBC (3.8-10.6) k/uL RBC 3.93 L (4.30-5.90) m/uL Hgb (13.0-17.5) gm/dL Hct (39.0-53.0) % MCV 103.1 H (80.0-100.0) fL MCH 35.9 H (25.0-35.0) pg Plt Count 141 L (150-450) k/uL Neutrophils # (1.3-7.7) k/uL Lymphocytes # (1.0-4.8) k/uL POC Glucose (mg/dL) 126 H 126 H (75-99) mg/dL Microbiology - Last 24 Hours (Table) 09/24/16 13:33 Gram Stain - Preliminary Hip - Right Wound Culture - Preliminary 09/24/16 13:33 Gram Stain - Preliminary Hip - Right Wound Culture - Preliminary 09/24/16 13:33 Anaerobic Culture - Preliminary Hip - Right 09/24/16 13:33 Anaerobic Culture - Preliminary Hip - Right Assessment and Plan (1) History of total right hip arthroplasty Status: Acute (2) Discomfort of right hip Status: Acute Plan: Continue routine postoperative care. Continue daily dressing changes. Continue hip precautions and abductor pillow. Weightbearing as tolerated. Continue anticoagulation with aspirin. Likely discharge to rehab in one or two days.
[2016-09-25 16:38] LABS: Glucose,Whole Blood 143 mg/dL (75-99)
--- NOTE | 2016-09-25 19:38 | PN ---
DATE OF SERVICE: 09/25/2016 PRESENTING COMPLAINT: Right hip surgery. INTERVAL HISTORY: Patient is status post right hip surgery, doing well. No chest pain, short of breath, Tolerating his diet. Did work with some physical therapy, comfortable. Review of systems done for constitutional, cardiovascular, GI, pulmonary findings as above. Current medications are reviewed. On examination, temperature 97.9, pulse 86, respiration 16, blood pressure 108/74, pulse ox 97% on room air. GENERAL APPEARANCE: Sitting up, comfortable. EYES: Pupils equal. Conjunctivae normal. NECK: JVD not raised. Mass not palpable. RESPIRATORY: Effort normal. Lungs are clear. Slight decreased breath sounds. CARDIOVASCULAR: First and second sounds normal. No edema. ABDOMEN: Soft, nontender. Liver and spleen not palpable. LYMPHATIC: No lymph nodes palpable in neck or axillae. PSYCHIATRY: Alert and oriented x3. Mood and affect normal. INVESTIGATIONS: White count 8.4, hemoglobin 14.1. Accu-Cheks are noted. ASSESSMENT: 1. Revision right total hip arthroplasty. 2. Diabetes mellitus, type II, on oral hypoglycemic. 3. Gastroesophageal reflux disease. 4. Essential hypertension. 5. Primary osteoarthritis in multiple joints. 6. Chronic nicotine dependence. Patient is a smoker. PLAN: Continue current medication and treatment plan. Care was discussed with the patient. Thank you Dr. Jean.
[2016-09-25 20:11] LABS: Glucose,Whole Blood 183 mg/dL (75-99)
[2016-09-25] MEDS: SENNOSIDES-DOCUSATE SODIUM 1 EACH TAB PO SCH (20:29)
[2016-09-25] MEDS: MELATONIN 5 MG TABLET PO SCH (20:29)
[2016-09-25] MEDS: LORATADINE 10 MG TAB PO SCH (20:29)
[2016-09-26] MEDS: HYDROmorphone 1 MG/ML 1 ML SYRINGE IVP PRN ×2 (01:33→05:47)
[2016-09-26] MEDS: Acetaminophen-Codeine 300-30mg TAB PO PRN ×5 (03:39→20:01)
[2016-09-26] MEDS: LACTATED RINGERS 1,000 ML IV SCH (05:59)
[2016-09-26 07:06] LABS: Glucose,Whole Blood 126 mg/dL (75-99)
[2016-09-26] MEDS: INSULIN LISPRO (humaLOG) 300 UNIT/3 ML VIAL SQ SCH ×4 (07:13→20:56)
[2016-09-26] MEDS: NICOTINE 7MG/24HR PATCH TRANSDERM SCH (07:45)
[2016-09-26] MEDS: metFORMIN 500 MG TAB PO SCH ×2 (07:50→17:32)
[2016-09-26] MEDS: PANTOPRAZOLE 40 MG TABLET PO SCH (07:50)
[2016-09-26] MEDS: FLUTICASONE 50MCG/SPRAY NASAL 16GM NASAL SCH (07:51)
[2016-09-26] MEDS: LISINOPRIL 20 MG TAB PO SCH (07:51)
[2016-09-26] MEDS: ASPIRIN 325 MG TAB PO SCH ×2 (07:51→20:56)
[2016-09-26] MEDS: MELOXICAM 7.5 MG TAB PO SCH (07:52)
[2016-09-26] MEDS: SODIUM CHLORIDE 0.9% 1,000 ML IV SCH (07:58)
[2016-09-26] MEDS: ceFAZolin 2 GM in SODIUM CHLORIDE 0.9% 100 ML IVPB SCH (07:59)
--- NOTE | 2016-09-26 09:10 | P.PN ---
Subjective Principal diagnosis: Status post revision right total hip arthroplasty This is a well-appearing 50 year old male who is status post revision right total hip arthroplasty. This is post operative day #2. Patient states his pain is under control. Patient states he's been up and walking with physical therapy. Patient has no new complaints today. Objective - Vital Signs Vital signs: Vital Signs Temp 98.8 F 09/26/16 07:00 Pulse 78 09/26/16 07:00 Resp 17 09/26/16 07:00 BP 121/72 09/26/16 07:00 Pulse Ox 99 09/26/16 07:00 Intake & Output 09/25/16 09/26/16 09/26/16 18:59 06:59 18:59 Intake Total 840 530 Output Total 675 1100 Balance 165 -1100 530 Intake: Oral 840 530 Output: Urine 675 1100 Uretheral (Ha) 600 Other: Voiding Method Indwelling Catheter # Voids 1 1 - Exam Patient is in no acute distress and is alert and oriented x3. Vital signs are stable. Patient's incision is clean and intact. There is some mild drainage from the incision. Calf is soft and nontender. Patient has full foot and ankle motion. Neurovascular status is intact. - Labs CBC & Chem 7: 09/25/16 06:39 Labs: Abnormal Lab Results - Last 24 Hours (Table) 09/25/16 09/25/16 09/25/16 Range/Units 11:23 16:35 20:08 POC Glucose (mg/dL) 126 H 143 H 183 H (75-99) mg/dL 09/26/16 Range/Units 07:03 POC Glucose (mg/dL) 126 H (75-99) mg/dL Microbiology - Last 24 Hours (Table) 09/24/16 13:33 Gram Stain - Preliminary Hip - Right Wound Culture - Preliminary 09/24/16 13:33 Gram Stain - Preliminary Hip - Right Wound Culture - Preliminary Assessment and Plan (1) History of total right hip arthroplasty Status: Acute (2) Discomfort of right hip Status: Acute Plan: Continue routine postoperative care. Continue daily dressing changes. Continue hip precautions and abductor pillow. Weightbearing as tolerated. Continue anticoagulation with aspirin. Likely discharge to rehab tomorrow.
--- NOTE | 2016-09-26 09:35 | P.DS ---
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 The patient presents for evaluation. After discussion and consideration patient elects to proceed with revision total hip arthroplasty. The patient is seen preoperatively by Dr. Jean and cleared for surgery. Patient is admitted to [facility] on 09/24/2016 for revision total hip arthroplasty. The procedures performed without complication or sequelae. The patient is doing well postoperatively. Labs and vital signs are stable on day of discharge. On day of discharge patient's hip incision is healing well. There is minimal erythema. There is mild drainage noted at this time. There is minimal soft tissue swelling to the hip and thigh. Patient has full foot and ankle motion without difficulty or pain. Neurovascular status to the right lower extremity is intact. Patient is discharged to rehab in good condition.Please see med rec for accurate list of home medications. Plan - Discharge Summary New Discharge Prescriptions: New Acetaminophen-Codeine 300-30mg [Tylenol #3] 1 - 2 tab PO Q4-6H PRN #90 tablet PRN Reason: Pain Aspirin 325 mg PO BID #60 tab Sennosides-Docusate Sodium [Senokot-S] 1 tab PO BID #60 tablet No Action Omeprazole [PriLOSEC] 20 mg PO AC-BRKFST Enalapril [Vasotec] 10 mg PO QAM Meloxicam [Mobic] 15 mg PO QAM metFORMIN HCL 1,000 mg PO BID Hydrochlorothiazide [Hydrodiuril] 25 mg PO QAM [place]-3 Fatty Acids/Fish Oil [Fish Oil 1,000 mg Softgel] 2 cap PO BID Acetaminophen Tab [Tylenol Tab] 650 mg PO Q4H PRN PRN Reason: Pain Multivitamin [Men's Multi-Vitamin] 1 tab PO DAILY Loratadine [Alavert] 10 mg PO HS Ibuprofen 400 mg PO Q6H PRN PRN Reason: Pain Fluticasone Nasal [place] [Flonase Nasal [place]] 1 spray NASAL DAILY Discharge Medication List Enalapril [Vasotec] 10 mg PO QAM 07/22/16 [History] Hydrochlorothiazide [Hydrodiuril] 25 mg PO QAM 07/22/16 [History] Meloxicam [Mobic] 15 mg PO QAM 07/22/16 [History] [place]-3 Fatty Acids/Fish Oil [Fish Oil 1,000 mg Softgel] 2 cap PO BID 07/22/16 [ History] Omeprazole [PriLOSEC] 20 mg PO AC-BRKFST 07/22/16 [History] metFORMIN HCL 1,000 mg PO BID 07/22/16 [History] Acetaminophen Tab [Tylenol Tab] 650 mg PO Q4H PRN 07/23/16 [History] Multivitamin [Men's Multi-Vitamin] 1 tab PO DAILY 07/23/16 [History] Fluticasone Nasal [place] [Flonase Nasal [place]] 1 spray NASAL DAILY 09/20/16 [ History] Ibuprofen 400 mg PO Q6H PRN 09/20/16 [History] Loratadine [Alavert] 10 mg PO HS 09/20/16 [History] Acetaminophen-Codeine 300-30mg [Tylenol #3] 1 - 2 tab PO Q4-6H PRN #90 tablet [Rx] Aspirin 325 mg PO BID #60 tab 09/26/16 [Rx] Sennosides-Docusate Sodium [Senokot-S] 1 tab PO BID #60 tablet 09/26/16 [Rx] Follow up Appointment(s)/Referral(s): Elton Jean DO [Doctor of Osteopathic Medicine] - 2 Weeks Patient Instructions/Handouts: Precautions after Total Joint Replacement Surgery (DC), Total Hip Replacement (DC), Hip Abduction Pillow (DC) Activity/Diet/Wound Care/Special Instructions: Kelsie Oconnell for rehab in [place] Weightbearing as tolerated with walker May shower after 2 days if no drainage from the incision Continue use of abductor pillow Follow-up with [facility] in 2 weeks with any questions or concerns Discharge Disposition: TRANSFER TO SNF/ECF
[2016-09-26 11:24] LABS: Glucose,Whole Blood 115 mg/dL (75-99)
[2016-09-26 17:14] LABS: Glucose,Whole Blood 107 mg/dL (75-99)
[2016-09-26 20:06] LABS: Glucose,Whole Blood 152 mg/dL (75-99)
[2016-09-26] MEDS: LORATADINE 10 MG TAB PO SCH (20:56)
[2016-09-26] MEDS: MELATONIN 5 MG TABLET PO SCH (20:56)
[2016-09-26] MEDS: SENNOSIDES-DOCUSATE SODIUM 1 EACH TAB PO SCH (20:56)
--- NOTE | 2016-09-26 23:51 | PN ---
DATE OF SERVICE: 09/26/2016 PRESENTING COMPLAINT: Right hip surgery. INTERVAL HISTORY: This patient was seen by me earlier today, status post right hip surgery. Doing much better. Tolerating a diet. Working with Physical Therapy. Pain is controlled. No nausea or vomiting. Review of systems done for constitutional, cardiovascular, GI, pulmonary; relevant findings are above. Current medications are reviewed. On examination, temperature 98.8, pulse 78, respiration 17, blood pressure 129/72, pulse ox 99% on room air. GENERAL APPEARANCE: Sitting on bed. Comfortable. EYES: Pupils equal. Conjunctivae normal. NECK: JVD not raised. RESPIRATORY: Effort normal. LUNGS: Slightly decreased breath sounds. CARDIOVASCULAR: First and second sounds normal. No edema. ABDOMEN: Soft, non-tender. Liver and spleen not palpable. PSYCHIATRY: Alert and oriented x3. Mood and affect normal. INVESTIGATIONS: Accu-Cheks are noted. ASSESSMENT: 1. Revision right total hip arthroplasty. 2. Diabetes mellitus, type 2, on oral hypoglycemic. 3. Gastroesophageal reflux disease. 4. Essential hypertension. 5. Primary osteoarthritis in multiple joints. 6. Chronic nicotine dependence. Patient is a smoker. PLAN: Continue current medication and treatment plan. Patient is overall doing much better. Thank you, Dr. Jean.
[2016-09-27] MEDS: Acetaminophen-Codeine 300-30mg TAB PO PRN ×3 (06:18→14:48)
[2016-09-27] MEDS: LACTATED RINGERS 1,000 ML IV SCH (06:24)
[2016-09-27] MEDS: SODIUM CHLORIDE 0.9% 1,000 ML IV SCH (06:25)
[2016-09-27 07:04] LABS: Basophils % (A) 1 %; CH 36.3; CHCM 34.7; Eosinophils # (A) 0.3 k/uL (0-0.7); Eosinophils % (A) 4 %; HDW 2.37; HGB 11.8 gm/dL (13.0-17.5); Luc # (Auto) 0.15; Luc % (Auto) 2; Lymphocytes # (A) 1.4 k/uL (1.0-4.8); Lymphocytes % (A) 17 %; MCH 35.4 pg (25.0-35.0); MCHC 33.6 g/dL (31.0-37.0); MCV 105.2 fL (80.0-100.0); Macrocytosis Slight; Mean Platelet Volume 7.7; Monocytes # (A) 0.6 k/uL (0-1.0); Monocytes % (A) 7 %; Neutrophils # (A) 5.7 k/uL (1.3-7.7); Neutrophils % (A) 70 %; RBC 3.33 m/uL (4.30-5.90); RDW 13.2 % (11.5-15.5); WBC 8.2 k/uL (3.8-10.6); WBC (Perox) 8.67
[2016-09-27 07:32] VITALS: BP 122/70; PULSE 72; RESP 16; TEMP 98.3
[2016-09-27 07:32] LABS: Glucose,Whole Blood 135 mg/dL (75-99)
[2016-09-27] MEDS: INSULIN LISPRO (humaLOG) 300 UNIT/3 ML VIAL SQ SCH ×2 (08:48→12:44)
[2016-09-27] MEDS: metFORMIN 500 MG TAB PO SCH (08:49)
[2016-09-27] MEDS: LISINOPRIL 20 MG TAB PO SCH (08:50)
[2016-09-27] MEDS: FLUTICASONE 50MCG/SPRAY NASAL 16GM NASAL SCH (08:50)
[2016-09-27] MEDS: ASPIRIN 325 MG TAB PO SCH (08:50)
[2016-09-27] MEDS: PANTOPRAZOLE 40 MG TABLET PO SCH (08:50)
[2016-09-27] MEDS: MELOXICAM 7.5 MG TAB PO SCH (08:50)
[2016-09-27] MEDS: NICOTINE 7MG/24HR PATCH TRANSDERM SCH (10:03)
[2016-09-27 12:17] LABS: Glucose,Whole Blood 78 mg/dL (75-99)
== END 2016-09-27 17:10 | DRG 468 ==
LOC: 2ORMAIN 10:00 → 3SUR 15:31
PROVIDERS: ADMIT Orthopaedic Surgery; ATTEND Orthopaedic Surgery
PROC: 0SUA09Z Supplement Right Hip Joint, Acetabular Surface with Liner, Open Approach (ICD-10-PCS; 2016-09-24)
PROC: 0SR902Z Replacement of Right Hip Joint with Metal on Polyethylene Synthetic Substitute, Open Approach (ICD-10-PCS; 2016-09-24)
PROC: 0SP90JZ Removal of Synthetic Substitute from Right Hip Joint, Open Approach (ICD-10-PCS; 2016-09-24)
PROC: 30233N0 Transfusion of Autologous Red Blood Cells into Peripheral Vein, Percutaneous Approach (ICD-10-PCS; 2016-09-24)
PROC: 0SP909Z Removal of Liner from Right Hip Joint, Open Approach (ICD-10-PCS; principal; 2016-09-24 12:10)
DX: T84.030A Mechanical loosening of internal right hip prosthetic joint, initial encounter (principal); T84.84XA Pain due to internal orthopedic prosthetic devices, implants and grafts, initial encounter; I10 Essential (primary) hypertension; M06.9 Rheumatoid arthritis, unspecified; E11.9 Type 2 diabetes mellitus without complications; E78.2 Mixed hyperlipidemia; Z96.643 Presence of artificial hip joint, bilateral; M19.91 Primary osteoarthritis, unspecified site; M61.9 Calcification and ossification of muscle, unspecified; K21.9 Gastro-esophageal reflux disease without esophagitis; F17.200 Nicotine dependence, unspecified, uncomplicated; Z88.0 Allergy status to penicillin; Z79.84 Long term (current) use of oral hypoglycemic drugs; Z79.899 Other long term (current) drug therapy; Z96.662 Presence of left artificial ankle joint; Z96.622 Presence of left artificial elbow joint; Z80.0 Family history of malignant neoplasm of digestive organs; Z79.1 Long term (current) use of non-steroidal anti-inflammatories (NSAID); Z79.51 Long term (current) use of inhaled steroids; Z82.3 Family history of stroke; Z83.3 Family history of diabetes mellitus; Z82.49 Family history of ischemic heart disease and other diseases of the circulatory system; Z87.828 Personal history of other (healed) physical injury and trauma; Z86.19 Personal history of other infectious and parasitic diseases; Z80.49 Family history of malignant neoplasm of other genital organs; Y79.2 Prosthetic and other implants, materials and accessory orthopedic devices associated with adverse incidents
CPT/HCPCS: 36415; 73501; 80053; 81001; 83036; 85025; 85027; 85610; 85652; 85730; 86140; 86850; 86891; 86900; 86901; 87070; 87075; 87205; 88305; 88331

== ENCOUNTER → 2017-07-14 | Outpatient (CLI) | payer BC ==
[2017-07-14 14:45] LABS: Basophils % (A) 0 %; Eosinophils # (A) 0.2 k/uL (0-0.7); Eosinophils % (A) 2 %; HCT 43.3 % (39.0-53.0); HGB 15.2 gm/dL (13.0-17.5); Lymphocytes # (A) 1.7 k/uL (1.0-4.8); Lymphocytes % (A) 15 %; MCH 31.7 pg (25.0-35.0); MCHC 35.2 g/dL (31.0-37.0); MCV 90.3 fL (80.0-100.0); Mean Platelet Volume 6.5; Monocytes # (A) 0.9 k/uL (0-1.0); Monocytes % (A) 8 %; Neutrophils # (A) 8.4 k/uL (1.3-7.7); Neutrophils % (A) 74 %; Platelet Count 389 k/uL (150-450); RBC 4.79 m/uL (4.30-5.90); RDW 11.8 % (11.5-15.5); WBC 11.4 k/uL (3.8-10.6)
[2017-07-14 15:34] LABS: Erythrocyte Sedimentation Rate 72 mm/hr (0-15)
== END | disposition home or self-care (01) ==
LOC: LABWHC1 14:21
PROVIDERS: ATTEND Physician Assistant
DX: E11.9 Type 2 diabetes mellitus without complications (principal); M51.36 Other intervertebral disc degeneration, lumbar region; M25.551 Pain in right hip; Z96.641 Presence of right artificial hip joint
CPT/HCPCS: 36415; 85025; 85652; 86140

== ENCOUNTER 2017-10-21 08:10 | Day surgery (SDC) | payer BC ==
[2017-10-17 15:46] VITALS: BMI 28.1
[~2017-10-21 08:10] MED LIST changes: -ACETAMINOPHEN TAB 500 MG TAB PO ONE; -FAMOTIDINE 20 MG/2 ML VIAL IV PRN; -LIDOCAINE 1% 20 ML VIAL (10MG/ML) FOR IV START INTRADERMA PRN; -MIDAZOLAM 2 MG/2 ML VIAL IV PRN; +ONDANSETRON 4 MG/2 ML VIAL IVP ONE; +Pre Op ABX Message 1 EACH MISC MISCELLANE ONE; -ROPIVACAINE 246.25 MG, EPINEPHrine 0.5 MG, KETOROLAC 30 MG, cloNIDine HCL/PF 80 MCG, WA... MISCELLANE ONE; -SCOPOLAMINE 1.5MG/72HR PATCH TRANSDERM ONE; -TRANEXAMIC ACID 1,000 MG in SODIUM CHLORIDE 0.9% 100 ML IVPB ONE; -ceFAZolin 2 GM in SODIUM CHLORIDE 0.9% 100 ML IVPB ONE
[2017-10-21 08:35] LABS: Glucose,Whole Blood 132 mg/dL (75-99)
[2017-10-21] MEDS: LACTATED RINGERS 1,000 ML IV SCH (08:35)
[2017-10-21] MEDS ORDERED: LIDOCAINE 1% 20 ML VIAL (10MG/ML) FOR IV START INTRADERMA ONE (08:36)
[2017-10-21] MEDS ORDERED: HYDROcodone/APAP 5-325MG 1 EACH TAB PO PRN ×2 (08:53)
[2017-10-21] MEDS ORDERED: HYDROmorphone 0.5 MG/0.5 ML SYRINGE IVP PRN ×3 (08:53)
[2017-10-21] MEDS ORDERED: hydrOXYzine PAMOATE 25 MG CAP PO PRN (08:53)
[2017-10-21] MEDS ORDERED: DIAZEPAM 5 MG TAB PO PRN (08:53)
[2017-10-21] MEDS ORDERED: MAGNESIUM HYDROXIDE 2,400 MG/10 ML CUP PO PRN (08:53)
[2017-10-21] MEDS ORDERED: ONDANSETRON 4 MG/2 ML VIAL IVP PRN (08:53)
[2017-10-21] MEDS ORDERED: NALOXONE 0.4 MG/ML 1 ML VIAL IV PRN (08:53)
[2017-10-21] MEDS ORDERED: PROPOFOL 10 MG/ML 20 ML VIAL IV ONE (08:58)
[2017-10-21] MEDS ORDERED: LIDOCAINE 1% INJ 10MG/ML (20 ML MDV) ONE (08:58)
[2017-10-21] MEDS ORDERED: MIDAZOLAM 2 MG/2 ML VIAL ONE (08:58)
[2017-10-21] MEDS ORDERED: SUCCINYLCHOLINE CHLORIDE 100 MG/5 ML SYR IV ONE (08:58)
[2017-10-21] MEDS ORDERED: fentaNYL (PF) 50 MCG/ML 2 ML AMP ONE (08:58)
[2017-10-21] MEDS ORDERED: SODIUM CHLORIDE 0.9% 100 ML with ceFAZolin 2,000 MG IV ONE ×2 (09:21)
--- NOTE | 2017-10-21 09:49 | P.OP ---
Date of Procedure: 10/21/17 Preoperative Diagnosis: Infection right hip Postoperative Diagnosis: Infection right hip Procedure(s) Performed: Incision and drainage right hip Anesthesia: ALEAH Surgeon: Elton Jean Visual Journalist #1: Linnea Gtz Estimated Blood Loss (ml): 25 Pathology: other (3 Cultures. 2 superficial cultures and one deep culture) Condition: stable Disposition: PACU Indications for Procedure: This is a 51-year-old gentleman has had a revision right total hip performed approximately a year ago. He recently began to have drainage in his hip and after failing conservative treatment, I recommended incision and drainage of his right hip. Informed consent was obtained. Operative Findings: The operative findings are consistent with a large pocket of clear fluid which extended deep to the fascia. No aditi purulence was encountered. Description of Procedure: Patient was seen and evaluated in the preoperative area, and the operative site was marked with a skin marker. Patient was then brought to the operating room and given a general anesthetic by the anesthesia department. Antibiotics were withheld until after cultures were obtained. Patient was then placed left lateral position and held with a [place] hip positioner. The right hip was then prepped and draped in usual sterile fashion. Hulett timeout was then performed which confirmed the patient's name, surgical site, ALLERGIES, and consent. The left hip was then incised sharply with a knife and the 2 sinus tracts were excised. There is a minimal amount of fluid encountered initially. The fascia was then incised and a large amount of clear fluid was expressed. 2 cultures were obtained superficially, and one deep culture was obtained. After the fluid was expressed, 2 g of Ancef were given. Pulsatile lavage was used to irrigate the area, as well as a liter of Irricept solution. After thorough irrigation, the fascia was then closed with #1 Vicryl over medium suction drain. Subcutaneous tissues were closed with 2-0 Vicryl, followed by reno for the skin. Sterile dressings were applied. Patient was transferred recovery room stable condition. The assistant superintendent Linnea ZHAO was required due the complexity of surgery and the need for skilled trading assistant.
[2017-10-21] MEDS: HYDROmorphone 0.5 MG/0.5 ML SYRINGE IVP PRN ×2 (10:21→10:28)
[2017-10-21] MEDS ORDERED: SODIUM CHLORIDE 0.9% 1,000 ML IV ONE (10:39)
[2017-10-21] MEDS: SODIUM CHLORIDE 0.9% 1,000 ML IV SCH (11:00)
[2017-10-21 11:02] LABS: Glucose,Whole Blood 154 mg/dL (75-99)
[2017-10-21 13:07] LABS: Basophils % (A) 0 %; Eosinophils % (A) 0 %; HGB 13.9 gm/dL (13.0-17.5); Lymphocytes # (A) 0.7 k/uL (1.0-4.8); Lymphocytes % (A) 7 %; MCH 28.9 pg (25.0-35.0); MCHC 33.2 g/dL (31.0-37.0); Monocytes # (A) 0.3 k/uL (0-1.0); Monocytes % (A) 3 %; Neutrophils # (A) 9.5 k/uL (1.3-7.7); Neutrophils % (A) 90 %; Platelet Count 364 k/uL (150-450); RBC 4.83 m/uL (4.30-5.90); RDW 14.9 % (11.5-15.5); WBC 10.6 k/uL (3.8-10.6)
[2017-10-21] MEDS: PANTOPRAZOLE 40 MG TABLET PO SCH (16:41)
[2017-10-21] MEDS: LISINOPRIL 20 MG TAB PO SCH (16:42)
[2017-10-21] MEDS: MELOXICAM 7.5 MG TAB PO SCH (16:44)
[2017-10-21] MEDS: LINAGLIPTIN 5 MG TABLET PO SCH (16:44)
[2017-10-21] MEDS: metFORMIN 500 MG TAB PO SCH ×2 (16:44→16:47)
[2017-10-21] MEDS: MULTIVITAMINS, THERA 1 EACH TAB PO SCH (16:47)
[2017-10-21] MEDS: ceFAZolin IN SWFI 2 GM/20 ML SYRINGE IVP SCH ×2 (16:50→22:48)
[2017-10-21 17:36] LABS: Glucose,Whole Blood 189 mg/dL (75-99)
[2017-10-21 20:35] LABS: Glucose,Whole Blood 163 mg/dL (75-99)
[2017-10-21] MEDS: LORATADINE 10 MG TAB PO SCH (21:45)
[2017-10-21] MEDS: SENNOSIDES-DOCUSATE SODIUM 1 EACH TAB PO SCH (21:45)
[2017-10-22] MEDS: SODIUM CHLORIDE 0.9% 1,000 ML IV SCH ×2 (06:17→16:58)
[2017-10-22] MEDS: LACTATED RINGERS 1,000 ML IV SCH (06:17)
[2017-10-22 06:46] LABS: Glucose,Whole Blood 114 mg/dL (75-99)
--- NOTE | 2017-10-22 07:34 | P.CONS ---
History of Present Illness - Reason for Consult Consult date: 10/21/17 - Chief Complaint In pain and swelling right hip - History of Present Illness 51-year-old male with a known history of osteogenesis imperfecta who is had at least 40 fractures through his life, had difficulty with his right hip in the past. He underwent a right total hip arthroplasty, however by last year there was loosening and required a revision to his right total hip arthroplasty. He has done well except over the last several weeks has been having increasing amounts of pain and discomfort to that hip. He is trying to increase his activity specifically by increasing amount of golf that he does since he is somewhat limited. He does relate that he was working hard at golf when he noticed some increasing swelling to the right hip. The became very swollen he sought care with his orthopedic surgeon. Because of the significant swelling and the fact that it was a revision arthroplasty was taken to the operating room today and a serous material was encountered that both the superficial and deep layers. Surgical note does not reveal that it penetrated to the joint. There is one outpatient evaluation shows evidence of an aspiration and a few colonies of Streptococcus viridans were isolated. With this the infectious diseases consultation was requested. Before presenting to hospital and in the days before his aspiration the patient relates that he was having some pain at the site but was not having significant fevers, chills or rigors. In general is feeling relatively well except for the pain and swelling at the site. No other new joint pains were noted. No skin troubles in no specific new trauma to the right hip had occurred. Review of Systems Pleasant 51-year-old male not in severe distress HEENT:Denies headache or acute visual change. Denies sinus or mouth discomforts. Denies neck stiffness or pain. Denies significant oral cavity pain. Denies difficulty on swallowing. Lungs: Denies significant shortness of breath, cough, sputum production, or hemoptysis. Cardiovascular: Denies significant shortness of breath, chest pain, chest wall pain, orthopnea, dyspnea on exertion, syncope Gastrointestinal:Denies nausea, vomiting, diarrhea, constipation, hematemesis, melena, hematochezia. No no significant change of bowel habit noticed. Musculoskeletal: 40 fractures over time and please see the HPI Skin: Denies new rash or lesions. No new ulcers or wounds are related.. Neuro: Denies headache or visual change. Denies any new onset weakness or difficulty with ambulation. Denies falls or seizures. Psychiatric:Denies anxiety or depression. Endocrine: Denies significant fatigue, denies significant weight loss or weight gain. Past Medical History Past Medical History: Diabetes Mellitus, GERD/Reflux, Hypertension, Osteoarthritis (OA) Additional Past Medical History / Comment(s): HX OF BACK PAIN History of Any Multi-Drug Resistant Organisms: None Reported Past Surgical History: Joint Replacement Additional Past Surgical History / Comment(s): RIGHT HIP SURGERY, TOTAL RIGHT HIP, REVISION RIGHT HIP(09/24/2016)- states total of 8 surgeries on right hip., LEFT TOTAL HIP, LEFT ANKLE, LEFT ELBOW Past Anesthesia/Blood Transfusion Reactions: Previous Problems w/ Anesthesia, Postoperative Nausea & Vomiting (PONV) Additional Past Anesthesia/Blood Transfusion Reaction / Comm: STATES AFTER RECEIVING "GAS" HE HAD DIFFICULTY BREATHING FOR A MONTH. Past Psychological History: No Psychological Hx Reported Additional Psychological History / Comment(s): and lives with his and the family home. Has 2 stepchildren. No animal exposures. Multiple family members including his sister having osteogenesis imperfecta. No experience. 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 No international travel. No animal exposures Smoking Status: Current some day smoker Past Alcohol Use History: Occasional Additional Past Alcohol Use History / Comment(s): STARTED SMOKING AT AGE 18 SMOKES 1/2 PACK PER WEEK Past Drug Use History: None Reported - Past Family History Mother Family Medical History: Cancer Additional Family Medical History / Comment(s): FEMALE CANCER Father Family Medical History: Cancer Additional Family Medical History / Comment(s): COLON CANCER Medications and Allergies Home Medications and Allergies Comment(s): Current Medications Hydrocodone Bitart/Acetaminophen ([place] 5-325) 1 each PO Q6HR PRN PRN Reason: Pain Scale 1 to 5 Hydrocodone Bitart/Acetaminophen ([place] 5-325) 2 each PO Q6HR PRN PRN Reason: Pain Scale 6 to 10 Aspirin (Aspirin) 81 mg PO DAILY REX Diazepam (Valium) 2.5 mg PO Q8HR PRN PRN Reason: Mild Spasms Hydrochlorothiazide (Hydrodiuril) 25 mg PO QAM REX Hydromorphone HCl (Dilaudid) 0.25 mg IVP Q3HR PRN PRN Reason: Pain Scale 1 to 3 Hydromorphone HCl (Dilaudid) 1 mg IVP Q3HR PRN PRN Reason: Pain Scale 7 to 10 Hydromorphone HCl (Dilaudid) 0.5 mg IVP Q3HR PRN PRN Reason: Pain Scale 4 to 6 Hydroxyzine Pamoate (Vistaril) 25 mg PO Q4HR PRN PRN Reason: Mild Nausea and/or Anxiety Lactated Ringer's (Lactated Ringers) 1,000 mls @ 20 mls/hr IV .Q24H [facility] Last Admin: 10/22/17 06:17 Dose: Not Given Sodium Chloride (Saline 0.9%) 1,000 mls @ 65 mls/hr IV .[id number] [facility] Last Admin: 10/22/17 06:17 Dose: Not Given Linagliptin (Tradjenta) 5 mg PO DAILY [facility] Last Admin: 10/21/17 16:44 Dose: 5 mg Lisinopril (Zestril) [facility] Last Admin: 10/21/17 16:42 Dose: Not Given Loratadine (Claritin) 10 mg PO [facility] Last Admin: 10/21/17 21:45 Dose: 10 mg Magnesium Hydroxide (Milk Of Magnesia) 2,400 mg PO DAILY PRN PRN Reason: Constipation Meloxicam (Mobic) 15 mg PO DAILY [facility] Last Admin: 10/21/17 16:44 Dose: 15 mg Metformin HCl (Glucophage) 1,000 mg PO BID-W/MEALS [facility] Last Admin: 10/21/17 16:47 Dose: Not Given Multivitamins (Theragran) 1 each PO DAILY@1200 [facility] Last Admin: 10/21/17 16:47 Dose: 1 each Naloxone HCl (Narcan) 0.2 mg IV Q2M PRN PRN Reason: Opioid Reversal Ondansetron HCl (Zofran) 4 mg IVP Q24HR PRN PRN Reason: Nausea And Vomiting Pantoprazole Sodium (Protonix) 40 mg PO AC-BRKFST [facility] Last Admin: 10/21/17 16:41 Dose: Not Given Senna/Docusate Sodium (Senokot-S) 2 each PO [facility] Last Admin: 10/21/17 21:45 Dose: Not Given Home Medications Medication Instructions Recorded Confirmed Type Enalapril [Vasotec] 10 mg PO QA 07/22/16 10/21/17 History Hydrochlorothiazide [Hydrodiuril] 25 mg PO QAM 07/22/16 10/21/17 History Omeprazole [PriLOSEC] 20 mg PO AC-BRKFST 07/22/16 10/21/17 History metFORMIN HCL 1,000 mg PO BID 07/22/16 10/21/17 History Multivitamin [Men's Multi-Vitamin] 1 tab PO DAILY 07/23/16 10/21/17 History Fluticasone Nasal [place] [Flonase 1 spray EA NOSTRIL DAILY 09/20/16 10/21/17 History Nasal [place]] Loratadine [Alavert] 10 mg PO HS 09/20/16 10/21/17 History Aspirin [Adult Low Dose Aspirin EC] 81 mg PO DAILY 10/17/17 10/21/17 History Fish Oil/Dha/Epa [Fish Oil 1,200 2 each PO BID 10/17/17 10/21/17 History mg Fish Oil] Ibuprofen 400 mg PO QAM PRN 10/17/17 10/21/17 History Meloxicam [Mobic] 15 mg PO DAILY 10/17/17 10/21/17 History sitaGLIPtin [Januvia] 100 mg PO DAILY 10/17/17 10/21/17 History Allergies Allergy/AdvReac Type Severity Reaction Status Date / Time ampicillin Allergy Rash/Hives Verified 10/17/17 15:29 Physical Exam Vitals: Vital Signs Temp Pulse Pulse Pulse Resp BP Pulse Ox 10/22/17 04:00 16 10/22/17 00:00 16 10/21/17 22:57 98.6 F 71 16 135/76 94 L 10/21/17 20:00 18 10/21/17 16:00 98.4 F 72 18 131/78 95 10/21/17 13:00 71 18 119/72 94 L 10/21/17 12:15 18 125/78 10/21/17 11:45 59 L 18 122/77 94 L 10/21/17 11:30 18 119/75 10/21/17 11:15 18 123/76 10/21/17 11:00 97.9 F 70 18 133/81 95 10/21/17 10:47 70 18 123/67 95 10/21/17 10:32 69 18 117/67 93 L 10/21/17 10:17 70 18 116/67 95 10/21/17 10:00 97 F L 72 18 136/77 95 10/21/17 08:26 97.0 F L 75 16 161/82 92 L Intake and Output 10/21/17 10/22/17 10/22/17 22:59 06:59 14:59 Output Total 60 Balance -60 Output: Drainage 60 Right Lateral Hip 60 Other: Voiding Method Urinal Urinal # Voids 1 3 51-year-old male who looks older than his stated age is only in mild discomfort at this time HEENT: Anicteric conjunctiva are pink and moist nasal mucosa grossly intact without significant lesions, there is no thrush. Neck: The neck is supple without significant lymphadenopathy or thyromegaly. Lungs: Good bilateral air entry without significant crackles or wheezing. There is no significant bronchial sounds. There is no egophony or dullness. Heart: Regular rate and rhythm with an audible S1-S2, no S3 no S4. There is no significant murmur click or rub, PMI was nondisplaced. Abdomen: Positive bowel sounds soft and nontender without palpable masses or organomegaly. There was no guarding or rebound. Extremities: The upper extremities have excellent pulses they are symmetric, no significant petechiae or telangiectasia. No splinter hemorrhages were noted. The lower extremities show evidence ofsignificant lesions. Surgical dressing is in place from the recent surgical intervention today and is not removed. The drainage is evidence of a grossly bloody material. He does have discomfort to any range of motion to the right hip. Other joints are without severe pain at this time. Skin is without rash or breakdown Neuro: Awake alert oriented to person place and time. There are no acute new gross focal sensory motor deficits. Results CBC & Chem 7: 10/21/17 12:29 Labs: Abnormal Lab Results - Last 24 Hours (Table) 10/21/17 10/21/17 10/21/17 Range/Units 08:31 10:58 12:29 Neutrophils # 9.5 H (1.3-7.7) k/uL Lymphocytes # 0.7 L (1.0-4.8) k/uL ESR (0-15) mm/hr POC Glucose (mg/dL) 132 H 154 H (75-99) mg/dL C-Reactive Protein (<10.0) mg/L 10/21/17 10/21/17 10/21/17 Range/Units 12:29 12:29 17:32 Neutrophils # (1.3-7.7) k/uL Lymphocytes # (1.0-4.8) k/uL ESR 28 H (0-15) mm/hr POC Glucose (mg/dL) 189 H (75-99) mg/dL C-Reactive Protein 62.7 H (<10.0) mg/L 10/21/17 10/22/17 Range/Units 20:14 06:42 Neutrophils # (1.3-7.7) k/uL Lymphocytes # (1.0-4.8) k/uL ESR (0-15) mm/hr POC Glucose (mg/dL) 163 H 114 H (75-99) mg/dL C-Reactive Protein (<10.0) mg/L Microbiology - Last 24 Hours (Table) 10/21/17 09:21 Gram Stain - Preliminary Hip - Right Wound Culture - Preliminary 10/21/17 09:21 Gram Stain - Preliminary Hip - Right Wound Culture - Preliminary 10/21/17 08:21 Gram Stain - Preliminary Hip - Right Wound Culture - Preliminary 10/21/17 09:21 Anaerobic Culture - Preliminary Hip - Right 10/21/17 09:21 Anaerobic Culture - Preliminary Hip - Right 10/21/17 08:21 Anaerobic Culture - Preliminary Hip - Right Laboratory Results WBC 10.6 k/uL (3.8-10.6) 10/21/17 12: RBC 4.83 m/uL (4.30-5.90) 10/21/17 12:29 Hgb 13.9 gm/dL (13.0-17.5) 10/21/17 12:29 Hct 42.0 % (39.0-53.0) 10/21/17 12: MCV 87.0 fL (80.0-100.0) 10/21/17 12:29 MCH 28.9 pg (25.0-35.0) 10/21/17 12: MCHC 33.2 g/dL (31.0-37.0) 10/21/17 12:29 RDW 14.9 % (11.5-15.5) 10/21/17 12:29 Plt Count 364 k/uL (150-450) 10/21/17 12:29 Neutrophils % 90 % 10/21/17 12:29 Lymphocytes % 7 % 10/21/17 12:29 Monocytes % 3 % 10/21/17 12:29 Eosinophils % 0 % 10/21/17 12:29 Basophils % 0 % 10/21/17 12:29 Neutrophils # 9.5 k/uL (1.3-7.7) H 10/21/17 12:29 Lymphocytes # 0.7 k/uL (1.0-4.8) L 10/21/17 12:29 Monocytes # 0.3 k/uL (0-1.0) 10/21/17 12:29 Eosinophils # 0.0 k/uL (0-0.7) 10/21/17 12: Basophils # 0.0 k/uL (0-0.2) 10/21/17 12:29 ESR 28 mm/hr (0-15) H 10/21/17 12:29 POC Glucose (mg/dL) 114 mg/dL (75-99) H 10/22/17 06:42 POC Glu [place] Converter Operator ID Emmy Dodge 10/22/17 06:42 C-Reactive Protein 62.7 mg/L (<10.0) H 10/21/17 12:29 Microbiology 10/21/17 09:21 Hip - Right Gram Stain - Preliminary 10/21/17 09:21 Hip - Right Wound Culture - Preliminary 10/21/17 09:21 Hip - Right Gram Stain - Preliminary 10/21/17 09:21 Hip - Right Wound Culture - Preliminary 10/21/17 08:21 Hip - Right Gram Stain - Preliminary 10/21/17 08:21 Hip - Right Wound Culture - Preliminary 10/21/17 09:21 Hip - Right Anaerobic Culture - Preliminary 10/21/17 09:21 Hip - Right Anaerobic Culture - Preliminary 10/21/17 08:21 Hip - Right Anaerobic Culture - Preliminary Outpatient culture which is aspiration reveals evidence of viridans streptococci Assessment and Plan (1) History of total right hip arthroplasty Current Visit: No Status: Acute Code(s): Z96.641 - PRESENCE OF RIGHT ARTIFICIAL HIP JOINT SNOMED Code(s): 914582468108 (2) Right hip pain Narrative/Plan: 51-year-old male who has the long-standing history of osteogenesis imperfecta presented to the orthopedic surgeon with the ongoing discomfort and pain to the right hip. A fluid collection had occurred in the soft tissue area and consequently aspiration in the office was performed. Evidence of some viridans streptococci with bone and constantly he was brought to the operating room for the exploration. A clear serous material was found both of the superficial and deep layers. There is no evidence of any penetration into the joint space. A drain was left in place after surgery. This is no bloody material. At this time cultures are in process which will help determine the course of her therapy. The evaluation of the fluid appears to be a bloody contaminated specimen with 120,000 red cells and 22,000 white cells which is in keeping with bloody contamination. At this time gram stains are pending and cultures are pending. Given the complete lack of symptoms such as fevers chills rigors or sweats it is certainly possible that the Streptococcus viridans it was isolate was contamination. However given the patient's tenacious status, would like to have at least some culture data available from the surgical procedure determine a course of antibiotic therapy. Is receiving standard cefazolin therapy at this time which based on prior culture is adequate. Prophylaxis is completed we'll give a dose of Rocephin. Current Visit: Yes Status: Acute Code(s): M25.551 - PAIN IN RIGHT HIP SNOMED Code(s): 22324161 (3) Osteogenesis imperfecta Current Visit: Yes Status: Acute Code(s): Q78.0 - OSTEOGENESIS IMPERFECTA SNOMED Code(s): 27911990
--- NOTE | 2017-10-22 08:50 | P.PN ---
Subjective Progress Note Date: 10/22/17 This is a 51-year-old male who is status post incision and drainage of the right hip. This is postoperative day #1. Patient is seen and evaluated at bedside with Dr. Elton Jean. Patient states that his pain is well controlled today and he has been up and walking. Patient states that his drain has been emptied twice. Patient denies any fever/chills, numbness, weakness or tingling. Objective - Vital Signs Vital signs: Vital Signs Temp 97.6 F 10/22/17 07:11 Pulse 62 10/22/17 07:11 Resp 16 10/22/17 07:11 BP 147/85 10/22/17 07:11 Pulse Ox 98 10/22/17 07:11 Intake & Output 10/21/17 10/22/17 10/22/17 18:59 06:59 18:59 Intake Total 3020 Output Total 655 60 Balance 2365 -60 Weight 83.915 kg Intake: IV 900 Oral 2120 Output: Drainage 30 60 Right Lateral Hip 30 60 Urine 600 Estimated Blood Loss 25 Other: Voiding Method Urinal Urinal # Voids 3 - Exam On exam patient is alert and oriented 3 sitting up in bed in no acute distress. Vital signs are stable. Dressing is clean, dry and intact. Drain is intact with minimal amount of drainage present. Calf is soft and nontender to palpation. Patient has full foot and ankle motion without pain or difficulty. Neurovascular status and circulatory status are intact. - Labs CBC & Chem 7: 10/21/17 12:29 Labs: Abnormal Lab Results - Last 24 Hours (Table) 10/21/17 10/21/17 10/21/17 Range/Units 10:58 12:29 12:29 Neutrophils # 9.5 H (1.3-7.7) k/uL Lymphocytes # 0.7 L (1.0-4.8) k/uL ESR (0-15) mm/hr POC Glucose (mg/dL) 154 H (75-99) mg/dL C-Reactive Protein 62.7 H (<10.0) mg/L 10/21/17 10/21/17 10/21/17 Range/Units 12:29 17:32 20:14 Neutrophils # (1.3-7.7) k/uL Lymphocytes # (1.0-4.8) k/uL ESR 28 H (0-15) mm/hr POC Glucose (mg/dL) 189 H 163 H (75-99) mg/dL C-Reactive Protein (<10.0) mg/L 10/22/17 Range/Units 06:42 Neutrophils # (1.3-7.7) k/uL Lymphocytes # (1.0-4.8) k/uL ESR (0-15) mm/hr POC Glucose (mg/dL) 114 H (75-99) mg/dL C-Reactive Protein (<10.0) mg/L Microbiology - Last 24 Hours (Table) 10/21/17 09:21 Gram Stain - Preliminary Hip - Right Wound Culture - Preliminary 10/21/17 09:21 Gram Stain - Preliminary Hip - Right Wound Culture - Preliminary 10/21/17 08:21 Gram Stain - Preliminary Hip - Right Wound Culture - Preliminary 10/21/17 09:21 Anaerobic Culture - Preliminary Hip - Right 10/21/17 09:21 Anaerobic Culture - Preliminary Hip - Right 10/21/17 08:21 Anaerobic Culture - Preliminary Hip - Right Assessment and Plan (1) Status post incision and drainage Current Visit: Yes Status: Acute Code(s): Z98.890 - OTHER SPECIFIED POSTPROCEDURAL STATES SNOMED Code(s): 536493385 (2) Osteogenesis imperfecta Current Visit: Yes Status: Acute Code(s): Q78.0 - OSTEOGENESIS IMPERFECTA SNOMED Code(s): 05740886 (3) Right hip pain Current Visit: Yes Status: Acute Code(s): M25.551 - PAIN IN RIGHT HIP SNOMED Code(s): 67820796 (4) Discomfort of right hip Current Visit: No Status: Acute Code(s): M25.551 - PAIN IN RIGHT HIP SNOMED Code(s): 930356850 (5) History of total right hip arthroplasty Current Visit: No Status: Acute Code(s): Z96.641 - PRESENCE OF RIGHT ARTIFICIAL HIP JOINT SNOMED Code(s): 501974906649 Plan: 1. Continue routine postoperative care and drain management. 2. Weightbearing as tolerated. 3. DVT prophylaxis with SCDs, VICENTA hose and aspirin. 4. Cultures are pending. 5. Appreciate input from infectious disease and internal medicine. 6. Likely discharge home in the next 1-2 days.
[2017-10-22] MEDS ORDERED: ASPIRIN 81 MG PO SCH (09:00)
[2017-10-22] MEDS: ASPIRIN 325 MG TAB PO SCH ×2 (09:30→21:48)
[2017-10-22] MEDS: HYDROCHLOROTHIAZIDE 25 MG TAB PO SCH (09:32)
[2017-10-22] MEDS: MELOXICAM 7.5 MG TAB PO SCH (09:32)
[2017-10-22] MEDS: LINAGLIPTIN 5 MG TABLET PO SCH (09:32)
[2017-10-22] MEDS: LISINOPRIL 20 MG TAB PO SCH (09:32)
[2017-10-22] MEDS: metFORMIN 500 MG TAB PO SCH ×2 (09:33→17:58)
[2017-10-22] MEDS: cefTRIAXone IN SWFI 1,000 MG/10 ML SYRINGE IVP SCH (09:33)
[2017-10-22] MEDS: PANTOPRAZOLE 40 MG TABLET PO SCH (09:33)
[2017-10-22 12:34] LABS: Glucose,Whole Blood 96 mg/dL (75-99)
[2017-10-22 17:23] LABS: Glucose,Whole Blood 106 mg/dL (75-99)
[2017-10-22] MEDS: MULTIVITAMINS, THERA 1 EACH TAB PO SCH (17:58)
[2017-10-22] MEDS: SENNOSIDES-DOCUSATE SODIUM 1 EACH TAB PO SCH (18:00)
[2017-10-22 20:33] LABS: Glucose,Whole Blood 162 mg/dL (75-99)
[2017-10-22] MEDS: LORATADINE 10 MG TAB PO SCH (21:48)
--- NOTE | 2017-10-23 00:24 | P.PN ---
Subjective Progress Note Date: 10/23/17 51-year-old male with a known history of osteogenesis imperfecta who is had at least 40 fractures through his life, had difficulty with his right hip in the past. He underwent a right total hip arthroplasty, however by last year there was loosening and required a revision to his right total hip arthroplasty. He has done well except over the last several weeks has been having increasing amounts of pain and discomfort to that hip. He is trying to increase his activity specifically by increasing amount of golf that he does since he is somewhat limited. He does relate that he was working hard at golf when he noticed some increasing swelling to the right hip. The became very swollen he sought care with his orthopedic surgeon. Because of the significant swelling and the fact that it was a revision arthroplasty was taken to the operating room today and a serous material was encountered that both the superficial and deep layers. Surgical note does not reveal that it penetrated to the joint. There is one outpatient evaluation shows evidence of an aspiration and a few colonies of Streptococcus viridans were isolated. With this the infectious diseases consultation was requested. Before presenting to hospital and in the days before his aspiration the patient relates that he was having some pain at the site but was not having significant fevers, chills or rigors. In general is feeling relatively well except for the pain and swelling at the site. No other new joint pains were noted. No skin troubles in no specific new trauma to the right hip had occurred. 10/22/2017 reveals the patient be feeling better. Is still having some drainage from the last dressing change but does feel better today. This discomforts have improved. He is having no fevers or chills. No other joint troubles at this time. Objective - Vital Signs Vital signs: Vital Signs Temp 97.7 F 10/22/17 15:28 Pulse 69 10/22/17 15:28 Resp 16 10/23/17 00:00 BP 186/96 10/22/17 15:28 Pulse Ox 96 10/22/17 15:28 Intake & Output 10/22/17 10/22/17 10/23/17 06:59 18:59 06:59 Intake Total 800 65 Output Total 60 120 Balance -60 680 65 Weight 83.915 kg Intake: IV 65 Sodium Chloride 0.9% 1, 65 000 ml @ 65 mls/hr IV . [id number] [facility] Rx#:[id number] Oral 800 Output: Drainage 60 120 Right Lateral Hip 60 120 Other: Voiding Method Urinal Toilet Toilet Urinal # Voids 3 2 - Exam 51-year-old male who looks older than his stated age is only in mild discomfort at this time HEENT: Anicteric conjunctiva are pink and moist nasal mucosa grossly intact without significant lesions, there is no thrush. Neck: The neck is supple without significant lymphadenopathy or thyromegaly. Lungs: Good bilateral air entry without significant crackles or wheezing. There is no significant bronchial sounds. There is no egophony or dullness. Heart: Regular rate and rhythm with an audible S1-S2, no S3 no S4. There is no significant murmur click or rub, PMI was nondisplaced. Abdomen: Positive bowel sounds soft and nontender without palpable masses or organomegaly. There was no guarding or rebound. Extremities: The upper extremities have excellent pulses they are symmetric, no significant petechiae or telangiectasia. No splinter hemorrhages were noted. The lower extremities show evidence ofsignificant lesions. Surgical dressing is in place without significant drainage to the dressing. No surrounding erythema. The NATALYA drain is evidence of a grossly bloody material. He does have discomfort to any range of motion to the right hip. Other joints are without severe pain at this time. Skin is without rash or breakdown Neuro: Awake alert oriented to person place and time. There are no acute new gross focal sensory motor deficits. - Labs CBC & Chem 7: 10/21/17 12:29 Labs: Abnormal Lab Results - Last 24 Hours (Table) 10/22/17 10/22/17 10/22/17 Range/Units 06:42 17:16 20:31 POC Glucose (mg/dL) 114 H 106 H 162 H (75-99) mg/dL Microbiology - Last 24 Hours (Table) 10/21/17 08:21 Gram Stain - Preliminary Hip - Right Wound Culture - Preliminary 10/21/17 09:21 Gram Stain - Preliminary Hip - Right Wound Culture - Preliminary 10/21/17 09:21 Gram Stain - Preliminary Hip - Right Wound Culture - Preliminary Laboratory Results WBC 10.6 k/uL (3.8-10.6) 10/21/17 12:29 RBC 4.83 m/uL (4.30-5.90) 10/21/17 12: Hgb 13.9 gm/dL (13.0-17.5) 10/21/17 12:29 Hct 42.0 % (39.0-53.0) 10/21/17 12: MCV 87.0 fL (80.0-100.0) 10/21/17 12: MCH 28.9 pg (25.0-35.0) 10/21/17 12: MCHC 33.2 g/dL (31.0-37.0) 10/21/17 12: RDW 14.9 % (11.5-15.5) 10/21/17 12: Plt Count 364 k/uL (150-450) 10/21/17 12: Neutrophils % 90 % 10/21/17 12: Lymphocytes % 7 % 10/21/17 12: Monocytes % 3 % 10/21/17 12: Eosinophils % 0 % 10/21/17 12: Basophils % 0 % 10/21/17 12:29 Neutrophils # 9.5 k/uL (1.3-7.7) H 10/21/17 12:29 Lymphocytes # 0.7 k/uL (1.0-4.8) L 10/21/17 12: Monocytes # 0.3 k/uL (0-1.0) 10/21/17 12: Eosinophils # 0.0 k/uL (0-0.7) 10/21/17 12:29 Basophils # 0.0 k/uL (0-0.2) 10/21/17 12:29 ESR 28 mm/hr (0-15) H 10/21/17 12:29 POC Glucose (mg/dL) 162 mg/dL (75-99) H 10/22/17 20:31 POC Glu [employer] Hostess ID Nicolasa Rivera 10/22/17 20:31 C-Reactive Protein 62.7 mg/L (<10.0) H 10/21/17 12:29 Microbiology 10/21/17 08:21 Hip - Right Gram Stain - Preliminary 10/21/17 08:21 Hip - Right Wound Culture - Preliminary 10/21/17 09:21 Hip - Right Gram Stain - Preliminary 10/21/17 09:21 Hip - Right Wound Culture - Preliminary 10/21/17 09:21 Hip - Right Gram Stain - Preliminary 10/21/17 09:21 Hip - Right Wound Culture - Preliminary 10/21/17 09:21 Hip - Right Anaerobic Culture - Preliminary 10/21/17 09:21 Hip - Right Anaerobic Culture - Preliminary 10/21/17 08:21 Hip - Right Anaerobic Culture - Preliminary Assessment and Plan (1) History of total right hip arthroplasty Current Visit: No Status: Acute Code(s): Z96.641 - PRESENCE OF RIGHT ARTIFICIAL HIP JOINT SNOMED Code(s): 342569703927 (2) Right hip pain Narrative/Plan: 51-year-old male who has the long-standing history of osteogenesis imperfecta presented to the orthopedic surgeon with the ongoing discomfort and pain to the right hip. A fluid collection had occurred in the soft tissue area and consequently aspiration in the office was performed. Evidence of some viridans streptococci with bone and constantly he was brought to the operating room for the exploration. A clear serous material was found both of the superficial and deep layers. There is no evidence of any penetration into the joint space. A drain was left in place after surgery. This is no bloody material. At this time cultures are in process which will help determine the course of her therapy. The evaluation of the fluid appears to be a bloody contaminated specimen with 120,000 red cells and 22,000 white cells which is in keeping with bloody contamination. At this time gram stains are pending and cultures are pending. Given the complete lack of symptoms such as fevers chills rigors or sweats it is certainly possible that the Streptococcus viridans it was isolate was contamination. However given the patient's tenacious status, would like to have at least some culture data available from the surgical procedure determine a course of antibiotic therapy. Is receiving standard cefazolin therapy at this time which based on prior culture is adequate. Prophylaxis is completed we'll give a dose of Rocephin. 10/22/2017 at this time the cultures are negative from the surgical intervention. The material appeared to be bloody in nature and serous. If the cultures remain negative in the morning he would then not need IV antibiotic therapy and to complete a course of oral antibiotic therapy at discharge. Current Visit: Yes Status: Acute Code(s): M25.551 - PAIN IN RIGHT HIP SNOMED Code(s): 96146966 (3) Osteogenesis imperfecta Current Visit: Yes Status: Acute Code(s): Q78.0 - OSTEOGENESIS IMPERFECTA SNOMED Code(s): 85964175
[2017-10-23] MEDS: LACTATED RINGERS 1,000 ML IV SCH (05:23)
[2017-10-23 06:39] LABS: Glucose,Whole Blood 128 mg/dL (75-99)
--- NOTE | 2017-10-23 06:57 | CONS ---
CONSULTATION DATE OF CONSULTATION: 10/22/2017 REASON FOR CONSULTATION: Medical management requested by Dr. Jean. CONSULTATION: This is a pleasant 51-year-old patient who follows with Dr. Mcnamara. Chronic stable medical conditions include diabetes, GERD, hypertension and osteoarthritis. The patient has got history of osteogenesis imperfecta and several members have the same. The patient had undergone right total hip arthroplasty in the past and subsequently loosening of the prosthesis happened. Subsequently over a period of time, patient has been having pain, swelling and some sinus drainage. The patient did have I and D carried out and Hemovac was placed in the same. Cultures have been sent off, which are all pending. Dr. Hallman was consulted from Infectious Disease. The patient is not on any antibiotics currently. The patient's secretions have been serous. No obvious fever and chills. The patient has been started on antibiotics in form of ceftriaxone by Dr. Hallman earlier today. The patient's pain is reasonably controlled. Did tolerate some diet. REVIEW OF SYSTEMS: CONSTITUTIONAL: Tired. HEENT: None. RESPIRATORY: None. CARDIOVASCULAR: None. GASTROINTESTINAL: Heartburn. GENITOURINARY: None. MUSCULOSKELETAL: Arthritic pain in many joints. DERMATOLOGICAL: None. HEMATOLOGIC: None. LYMPHATICS: none. PSYCHIATRY: None. NEUROLOGICAL: None. DERMATOLOGICAL: About the right hip as above. PAST MEDICAL HISTORY: Diabetes mellitus type 2, GERD, hypertension, osteoarthritis, osteogenesis imperfecta. PAST SURGICAL HISTORY: Right hip surgery, total right hip with total right hip revision on September 17, 2016, left total hip, left ankle, left elbow surgery. SOCIAL HISTORY: . Works at a [employer]. Smoked for about 30 years about half a pack lasting a week. Alcohol occasionally. FAMILY HISTORY: Multiple family members have osteogenesis imperfecta. HOME MEDICATIONS: 1. Men's multivitamin 1 tablet p.o. daily. 2. Mobic 15 mg p.o. daily. 3. Alavert 10 mg p.o. at bedtime. 4. Ibuprofen 400 mg p.o. daily p.r.n. 5. Hydrochlorothiazide 25 mg p.o. daily. 6. Flonase 1 spray each nostril daily. 7. Januvia 100 mg p.o. daily. 8. Metformin 1000 mg p.o. b.i.d. 9. Fish oil 2 tablets p.o. b.i.d. 10.Aspirin 81 mg p.o. daily. 11.Prilosec 20 mg before breakfast. 12.Vasotec 10 mg p.o. daily. ALLERGIES: Allergies to AMPICILLIN. PHYSICAL EXAMINATION: On examination, vital signs on presentation, temperature 97, pulse 75, respiration 16, blood pressure 136/77, pulse ox 95% on room air. GENERAL APPEARANCE: Average build, lying in bed, not in distress. EYES: Pupils equal. Conjunctivae normal. HENT: External appearance of nose and ears normal. Oral cavity normal. NECK: JVD not raised. Mass not palpable. RESPIRATORY: Effort normal. LUNGS: Fair entry. CARDIOVASCULAR: First and second sounds normal. No edema. ABDOMEN: Soft, nontender. Liver and spleen not palpable. LYMPHATIC: No lymph node palpable in neck or axillae. PSYCHIATRY: Alert and oriented x3. Mood and affect normal. NEUROLOGICAL: Pupils equal. Cranial nerves grossly intact. Power and sensation grossly intact. EXTREMITIES: The patient has got a Hemovac on the right hip joint with some blood present. INVESTIGATIONS: White count 10.6, hemoglobin 13.9. Microbiology is pending. ASSESSMENT: 1. This is a patient that has got right total hip arthroplasty with a revision of the same hip presented with drainage, pain, swelling of that joint. Cultures are pending. Patient is status post I and D of the same with a Hemovac in place. Empirically patient has been put on ceftriaxone by Dr. Hallman. 2. Diabetes mellitus type 2 on oral hypoglycemic. 3. Gastroesophageal reflux disease. 4. Essential hypertension. 5. Osteogenesis imperfecta. 6. Probably secondary osteoarthritis. PLAN: Home medications will be continued. Pain control is in place. Patient also got DVT prophylaxis. The patient is on IV ceftriaxone. Accu-Cheks are to be followed. Care was discussed the patient. Questions were answered. Thank you Dr. Jean. MMODL / IJN: [id number] /
[2017-10-23 07:02] LABS: Basophils # (A) 0.1 k/uL (0-0.2); Basophils % (A) 1 %; Eosinophils # (A) 0.3 k/uL (0-0.7); Eosinophils % (A) 4 %; HGB 13.7 gm/dL (13.0-17.5); Lymphocytes % (A) 24 %; MCH 28.9 pg (25.0-35.0); MCHC 32.7 g/dL (31.0-37.0); MCV 88.4 fL (80.0-100.0); Mean Platelet Volume 5.8; Monocytes # (A) 0.5 k/uL (0-1.0); Monocytes % (A) 6 %; Neutrophils # (A) 5.3 k/uL (1.3-7.7); Neutrophils % (A) 64 %; Platelet Count 382 k/uL (150-450); RBC 4.75 m/uL (4.30-5.90); RDW 14.8 % (11.5-15.5); WBC 8.3 k/uL (3.8-10.6)
[2017-10-23 07:20] VITALS: BP 143/86; PULSE 58; RESP 16; TEMP 97.5
[2017-10-23] MEDS: SODIUM CHLORIDE 0.9% 1,000 ML IV SCH (08:12)
[2017-10-23] MEDS: metFORMIN 500 MG TAB PO SCH (08:49)
[2017-10-23] MEDS: cefTRIAXone IN SWFI 1,000 MG/10 ML SYRINGE IVP SCH (08:49)
[2017-10-23] MEDS: ASPIRIN 325 MG TAB PO SCH (08:50)
[2017-10-23] MEDS: MELOXICAM 7.5 MG TAB PO SCH (08:50)
[2017-10-23] MEDS: HYDROCHLOROTHIAZIDE 25 MG TAB PO SCH (08:50)
[2017-10-23] MEDS: LINAGLIPTIN 5 MG TABLET PO SCH (08:50)
[2017-10-23] MEDS: LISINOPRIL 20 MG TAB PO SCH (08:50)
[2017-10-23] MEDS: PANTOPRAZOLE 40 MG TABLET PO SCH (08:50)
[2017-10-23] MEDS: MULTIVITAMINS, THERA 1 EACH TAB PO SCH (08:51)
--- NOTE | 2017-10-23 09:04 | P.DS ---
Providers Expected date of discharge: 10/23/17 Attending physician: Elton Jean Consults: 10/21/17 08:53 Consult Physician Routine Consulting Provider: Florencio Hallman Consult Reason/Comments: s/p I&D left hip Do you want consulting provider notified?: Yes 10/21/17 08:56 Consult Physician Routine Consulting Provider: Mark Mcnamara Consult Reason/Comments: medical management Do you want consulting provider notified?: Yes 10/21/17 12:53 Consult Physician Routine Consulting Provider: Terrance Healy Consult Reason/Comments: medical management Do you want consulting provider notified?: Already Contacted Primary care physician: Mark Mcnamara - Discharge Diagnosis(es) (1) Status post incision and drainage Current Visit: Yes Status: Acute (2) Osteogenesis imperfecta Current Visit: Yes Status: Acute (3) Right hip pain Current Visit: Yes Status: Acute (4) Discomfort of right hip Current Visit: No Status: Acute (5) History of total right hip arthroplasty Current Visit: No Status: Acute Hospital Course: This is a 51-year-old male with a history of revision right total hip arthroplasty performed one year ago. The patient presents for evaluation after he developed swelling and drainage from the right hip. Patient failed outpatient treatment. After discussion and consideration patient elects to proceed with incision and drainage of the right hip. The patient is seen preoperatively by Dr. Jean. Patient is admitted to [facility] on 10/21/2017 for incision and drainage of the right hip. The procedures performed without complication or sequelae. The patient is doing well postoperatively. Labs and vital signs are stable on day of discharge. Patient will be discharged home with antibiotics per infectious disease. Cultures are pending and gram stain shows no organisms so far. On day of discharge patient's hip incision is healing well. The [place] are intact There is minimal erythema. There is no drainage noted at this time. Drain is removed. There is minimal soft tissue swelling to the hip and thigh. Patient has full foot and ankle motion without difficulty or pain. Neurovascular status to the right lower extremity is intact. Patient is discharged home in good condition. Please see med rec for accurate list of home medications. Plan - Discharge Summary Discharge Rx Participant: No New Discharge Prescriptions: New Aspirin 325 mg PO BID #28 tab No Action Omeprazole [PriLOSEC] 20 mg PO AC-BRKFST Enalapril [Vasotec] 10 mg PO QAM metFORMIN HCL 1,000 mg PO BID Hydrochlorothiazide [Hydrodiuril] 25 mg PO QAM Multivitamin [Men's Multi-Vitamin] 1 tab PO DAILY Loratadine [Alavert] 10 mg PO HS Fluticasone Nasal [place] [Flonase Nasal [place]] 1 spray EA NOSTRIL DAILY Fish Oil/Dha/Epa [Fish Oil 1,200 mg Fish Oil] 2 each PO BID sitaGLIPtin [Januvia] 100 mg PO DAILY Meloxicam [Mobic] 15 mg PO DAILY Ibuprofen 400 mg PO QAM PRN PRN Reason: Pain Aspirin [Adult Low Dose Aspirin EC] 81 mg PO DAILY Discharge Medication List Enalapril [Vasotec] 10 mg PO QAM 07/22/16 [History] Hydrochlorothiazide [Hydrodiuril] 25 mg PO QAM 07/22/16 [History] Omeprazole [PriLOSEC] 20 mg PO AC-BRKFST 07/22/16 [History] metFORMIN HCL 1,000 mg PO BID 07/22/16 [History] Multivitamin [Men's Multi-Vitamin] 1 tab PO DAILY 07/23/16 [History] Fluticasone Nasal [place] [Flonase Nasal [place]] 1 spray EA NOSTRIL DAILY 09/20/16 [History] Loratadine [Alavert] 10 mg PO HS 09/20/16 [History] Aspirin [Adult Low Dose Aspirin EC] 81 mg PO DAILY 10/17/17 [History] Fish Oil/Dha/Epa [Fish Oil 1,200 mg Fish Oil] 2 each PO BID 10/17/17 [History] Ibuprofen 400 mg PO QAM PRN 10/17/17 [History] Meloxicam [Mobic] 15 mg PO DAILY 10/17/17 [History] sitaGLIPtin [Januvia] 100 mg PO DAILY 10/17/17 [History] Aspirin 325 mg PO BID #28 tab 10/23/17 [Rx] Follow up Appointment(s)/Referral(s): Elton Jean DO [Doctor of Osteopathic Medicine] - 10 Days Activity/Diet/Wound Care/Special Instructions: Weightbearing as tolerated. Daily dressing changes. Please take medications as prescribed. Cover incision when showering. Vseta to be removed in 10-14 days. Follow-up with [facility] in 2 weeks with any questions or concerns, please call with any questions or concerns, Discharge Disposition: HOME SELF-CARE
[2017-10-23 12:25] LABS: Glucose,Whole Blood 132 mg/dL (75-99)
--- NOTE | 2017-10-23 23:13 | P.PN ---
Subjective Progress Note Date: 10/23/17 51-year-old male with a known history of osteogenesis imperfecta who is had at least 40 fractures through his life, had difficulty with his right hip in the past. He underwent a right total hip arthroplasty, however by last year there was loosening and required a revision to his right total hip arthroplasty. He has done well except over the last several weeks has been having increasing amounts of pain and discomfort to that hip. He is trying to increase his activity specifically by increasing amount of golf that he does since he is somewhat limited. He does relate that he was working hard at golf when he noticed some increasing swelling to the right hip. The became very swollen he sought care with his orthopedic surgeon. Because of the significant swelling and the fact that it was a revision arthroplasty was taken to the operating room today and a serous material was encountered that both the superficial and deep layers. Surgical note does not reveal that it penetrated to the joint. There is one outpatient evaluation shows evidence of an aspiration and a few colonies of Streptococcus viridans were isolated. With this the infectious diseases consultation was requested. Before presenting to hospital and in the days before his aspiration the patient relates that he was having some pain at the site but was not having significant fevers, chills or rigors. In general is feeling relatively well except for the pain and swelling at the site. No other new joint pains were noted. No skin troubles in no specific new trauma to the right hip had occurred. 10/22/2017 reveals the patient be feeling better. Is still having some drainage from the last dressing change but does feel better today. This discomforts have improved. He is having no fevers or chills. No other joint troubles at this time. 10/23/2017 finds the patient to be considerably improved. He's been able to ambulate without great difficulties. Drainage is improved. Not having pain. No fevers or chills. He does feel quite well at this time. Objective - Vital Signs Vital signs: Vital Signs Temp 97.5 F L 10/23/17 07:07 Pulse 58 L 10/23/17 07:07 Resp 16 10/23/17 11:00 BP 143/86 10/23/17 07:07 Pulse Ox 97 10/23/17 07:07 Intake & Output 10/23/17 10/23/17 10/24/17 06:59 18:59 06:59 Intake Total 520 450 Output Total 15 Balance 505 450 Intake: IV 520 Sodium Chloride 0.9% 1, 520 000 ml @ 65 mls/hr IV . [id number] [facility] Rx#:[id number] Oral 450 Output: Drainage 15 Right Lateral Hip 15 Other: Voiding Method Toilet Toilet Urinal # Voids 1 - Exam 51-year-old male who looks older than his stated age is only in mild discomfort at this time HEENT: Anicteric conjunctiva are pink and moist nasal mucosa grossly intact without significant lesions, there is no thrush. Neck: The neck is supple without significant lymphadenopathy or thyromegaly. Lungs: Good bilateral air entry without significant crackles or wheezing. There is no significant bronchial sounds. There is no egophony or dullness. Heart: Regular rate and rhythm with an audible S1-S2, no S3 no S4. There is no significant murmur click or rub, PMI was nondisplaced. Abdomen: Positive bowel sounds soft and nontender without palpable masses or organomegaly. There was no guarding or rebound. Extremities: The upper extremities have excellent pulses they are symmetric, no significant petechiae or telangiectasia. No splinter hemorrhages were noted. The lower extremities show evidence ofsignificant lesions. Surgical dressing is in place without significant drainage to the dressing. No surrounding erythema. The drain has been removed. He does have minimal discomfort to range of motion to the right hip. Other joints are without severe pain at this time. Skin is without rash or breakdown Neuro: Awake alert oriented to person place and time. There are no acute new gross focal sensory motor deficits. - Labs CBC & Chem 7: 10/23/17 06:49 Labs: Abnormal Lab Results - Last 24 Hours (Table) 10/23/17 10/23/17 Range/Units 06:38 12:16 POC Glucose (mg/dL) 128 H 132 H (75-99) mg/dL Microbiology - Last 24 Hours (Table) 10/21/17 09:21 Anaerobic Culture - Preliminary Hip - Right 10/21/17 08:21 Anaerobic Culture - Preliminary Hip - Right 10/21/17 09:21 Anaerobic Culture - Preliminary Hip - Right 10/21/17 09:21 Gram Stain - Final Hip - Right Wound Culture - Final Laboratory Results WBC 8.3 k/uL (3.8-10.6) 10/23/17 06:49 RBC 4.75 m/uL (4.30-5.90) 10/23/17 06:49 Hgb 13.7 gm/dL (13.0-17.5) 10/23/17 06:49 Hct 42.0 % (39.0-53.0) 10/23/17 06:49 MCV 88.4 fL (80.0-100.0) 07 06:49 MCH 28.9 pg (25.0-35.0) 07 06:49 MCHC 32.7 g/dL (31.0-37.0) 07 06:49 RDW 14.8 % (11.5-15.5) 10/23/17 06:49 Plt Count 382 k/uL (150-450) 10/23/17 06:49 Neutrophils % 64 % 10/23/17 06:49 Lymphocytes % 24 % 10/23/17 06:49 Monocytes % 6 % 10/23/17 06:49 Eosinophils % 4 % 10/23/17 06:49 Basophils % 1 % 10/23/17 06:49 Neutrophils # 5.3 k/uL (1.3-7.7) 10/23/17 06:49 Lymphocytes # 2.0 k/uL (1.0-4.8) 10/23/17 06:49 Monocytes # 0.5 k/uL (0-1.0) 10/23/17 06:49 Eosinophils # 0.3 k/uL (0-0.7) 10/23/17 06:49 Basophils # 0.1 k/uL (0-0.2) 10/23/17 06:49 ESR 28 mm/hr (0-15) H 10/21/17 12:29 POC Glucose (mg/dL) 132 mg/dL (75-99) H 10/23/17 12:16 POC Glu [employer] ID Emmy Dodge 10/23/17 12:16 C-Reactive Protein 62.7 mg/L (<10.0) H 10/21/17 12:29 Microbiology 10/21/17 09:21 Hip - Right Anaerobic Culture - Preliminary 10/21/17 08:21 Hip - Right Anaerobic Culture - Preliminary 10/21/17 09:21 Hip - Right Anaerobic Culture - Preliminary 10/21/17 09:21 Hip - Right Gram Stain - Final 10/21/17 09:21 Hip - Right Wound Culture - Final 10/21/17 08:21 Hip - Right Gram Stain - Preliminary 10/21/17 08:21 Hip - Right Wound Culture - Preliminary 10/21/17 09:21 Hip - Right Gram Stain - Preliminary 10/21/17 09:21 Hip - Right Wound Culture - Preliminary Assessment and Plan (1) History of total right hip arthroplasty Status: Acute Code(s): Z96.641 - PRESENCE OF RIGHT ARTIFICIAL HIP JOINT SNOMED Code(s): 404130257522 (2) Right hip pain Narrative/Plan: 51-year-old male who has the long-standing history of osteogenesis imperfecta presented to the orthopedic surgeon with the ongoing discomfort and pain to the right hip. A fluid collection had occurred in the soft tissue area and consequently aspiration in the office was performed. Evidence of some viridans streptococci with bone and constantly he was brought to the operating room for the exploration. A clear serous material was found both of the superficial and deep layers. There is no evidence of any penetration into the joint space. A drain was left in place after surgery. This is no bloody material. At this time cultures are in process which will help determine the course of her therapy. The evaluation of the fluid appears to be a bloody contaminated specimen with 120,000 red cells and 22,000 white cells which is in keeping with bloody contamination. At this time gram stains are pending and cultures are pending. Given the complete lack of symptoms such as fevers chills rigors or sweats it is certainly possible that the Streptococcus viridans it was isolate was contamination. However given the patient's tenacious status, would like to have at least some culture data available from the surgical procedure determine a course of antibiotic therapy. Is receiving standard cefazolin therapy at this time which based on prior culture is adequate. Prophylaxis is completed we'll give a dose of Rocephin. 10/22/2017 at this time the cultures are negative from the surgical intervention. The material appeared to be bloody in nature and serous. If the cultures remain negative in the morning he would then not need IV antibiotic therapy and to complete a course of oral antibiotic therapy at discharge. 10/23/2017 the culture at this point in time is negative from the surgical drainage of the hip. The outpatient culture did have evidence of a few Streptococcus viridans. The deep cultures being negative does not appear to have significant deep-seated infection at the site. We'll not require outpatient intravenous antibiotic therapy. We'll complete a seven-day course of cefuroxime at this time because of the history of a total hip arthroplasty. Drainage is markedly improved he will follow-up with orthopedics in the near future. In following the ID office if there is any further concerns. The patient has a elevated sed rate and CRP however unclear what his baseline is with his underlying osteogenesis imperfecta. Status: Acute Code(s): M25.551 - PAIN IN RIGHT HIP SNOMED Code(s): 79131249 (3) Osteogenesis imperfecta Status: Acute Code(s): Q78.0 - OSTEOGENESIS IMPERFECTA SNOMED Code(s): 08888413
--- NOTE | 2017-10-23 23:45 | PN ---
PROGRESS NOTE DATE OF SERVICE: 10/23/2017 PRESENTING COMPLAINT: Right hip revision infection. INTERVAL HISTORY: Patient is status post I and D of the right hip revision. The drain was taken out this morning. Overall feeling much better. No pain. No nausea, vomiting. Tolerated his breakfast. REVIEW OF SYSTEMS: Done for constitutional, cardiovascular, GI, pulmonary; relevant findings as above. CURRENT MEDICATIONS: Reviewed. EXAMINATION: Temperature 97.5, pulse 58, respirations 16, blood pressure 143/86, pulse ox 97% on room air. GENERAL APPEARANCE: Sitting up, comfortable. EYES: Pupils equal. Conjunctivae normal. HEENT: External nose and ears normal. Oral cavity normal. NECK: JVD not raised. Mass not palpable. RESPIRATORY: Effort normal. Lungs are clear. CARDIOVASCULAR: First and second sounds normal. No edema. ABDOMEN: Soft, nontender. Liver and spleen not palpable. RIGHT HIP: Minimal tenderness. INVESTIGATIONS: White count 8.3, hemoglobin 13.7. Micro was pending and negative until now. ASSESSMENT: 1. Right hip arthroplasty followed by a revision of a local infection, status post irrigation and debridement, Hemovac now removed. The patient will be sent home on Ceftin as per Dr. Hallman. 2. Diabetes mellitus type 2 on oral hypoglycemic. 3. Gastroesophageal reflux disease. 4. Essential hypertension. 5. 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 PLAN: Care was discussed with the patient. Should follow with the family doctor, also. Antibiotics per Dr. Hallman. Thank you, Dr. Jean. MMODL / IJN: [id number] /
== END 2017-10-23 14:17 | disposition home or self-care (01) ==
LOC: OR 08:10 → EDSTATUS 09:15 → 3OBS 10:26 → OR 10-23 14:17
PROVIDERS: ATTEND Orthopaedic Surgery
DX: L08.9 Local infection of the skin and subcutaneous tissue, unspecified (principal); Q78.0 Osteogenesis imperfecta; Z96.641 Presence of right artificial hip joint; I10 Essential (primary) hypertension; E11.9 Type 2 diabetes mellitus without complications; Z79.84 Long term (current) use of oral hypoglycemic drugs; F17.210 Nicotine dependence, cigarettes, uncomplicated; K21.9 Gastro-esophageal reflux disease without esophagitis; Z79.82 Long term (current) use of aspirin; Z79.2 Long term (current) use of antibiotics; Z79.1 Long term (current) use of non-steroidal anti-inflammatories (NSAID); Z79.51 Long term (current) use of inhaled steroids; Z79.899 Other long term (current) drug therapy; Z88.0 Allergy status to penicillin; M19.90 Unspecified osteoarthritis, unspecified site
CPT/HCPCS: 97161; 85652; 85025 ×2; 86140; 87070; 87205; 87075; 17999; J2250; J1100; J2405; J0690 ×2; J2001; J0696 ×2; J3010; J0330; J2704; J1170